=== PATIENT | male | born 1945 | race Hispanic/Latino ===

== ENCOUNTER 2017-11-13 00:19 | Inpatient (IN) | payer MEDICARE ==
[2017-11-13] MEDS ORDERED: Nitroglycerin 0.4 MG TAB (25 Tab Bottle) ONE (00:26)
[2017-11-13] MEDS ORDERED: Morphine 4 MG/ML VIAL ONE (00:50)
[2017-11-13 00:54] LABS: #Eosinphils 0.3 thou/uL (0.0-0.7); #Lymphocytes 3.4 thou/uL (1.20-3.40); #Monocytes 0.8 thou/uL (0.11-0.59); #Neutrophils 7.9 thou/uL (1.40-6.50); %Basophils 0.2 % (0.0-1.0); %Eosinophils 2.1 % (0.0-10.0); %Lymphocytes 27.3 % (21.0-51.0); %Monocytes 6.3 % (0.0-10.0); %Neutrophils 64.1 % (42.0-75.0); Hemoglobin 11.6 g/dL (14.0-18.0); Mean Corpuscular HGB CONC 35.2 g/dL (32.0-36.0); Mean Corpuscular Hemoglobin 31.5 pg (27.0-31.0); Mean Corpuscular Volume 89.7 fL (78.0-98.0); Platelet Count 230 thou/uL (130-400); RBC Distribution Width 14.7 % (11.5-14.5); Red Blood Cell (RBC) Count 3.69 mill/uL (4.70-6.10); White Blood Cell (WBC) Count 12.3 thou/uL (4.8-10.8)
[2017-11-13 01:12] LABS: ALT (SGPT) 8 U/L (8-55); AST (SGOT) 14 U/L (5-34); Albumin 3.7 g/dL (3.4-4.8); Alkaline Phosphatase 102 U/L (40-150); Anion Gap 13 mmol/L (10-20); BUN (Urea Nitrogen) 41 mg/dL (8.4-25.7); Bilirubin, Total 0.3 mg/dL (0.2-1.2); Calc. Creatinine Clearance 0 mL/min (70-130); Calcium 9.2 mg/dL (7.8-10.44); Carbon Dioxide 27 mmol/L (23-31); Chloride 101 mmol/L (98-107); Estimated GFR-MDRD 25; Globulin 4.4 g/dL (2.4-3.5); Glucose 252 mg/dL (80-115); Potassium 3.2 mmol/L (3.5-5.1); Protein, Total 8.1 g/dL (5.8-8.1); Sodium 138 mmol/L (136-145)
[2017-11-13 01:16] LABS: Troponin I 0.042 ng/mL (< 0.028)
[2017-11-13 05:10] LABS: Troponin I 0.037 ng/mL (< 0.028)
[2017-11-13 08:06] LABS: Troponin I 0.147 ng/mL (< 0.028)
--- NOTE | 2017-11-13 09:15 | RAD ---
PORTABLE UPRIGHT FRONTAL CHEST: Date: 11/13/17 COMPARISON: 06/09/16. HISTORY: Chest pain and syncope. FINDINGS: No pneumothorax, pleural fluid, lobar consolidation, or alveolar edema. There is prominence of the ca rdiac silhouette. Dual lead transvenous pacing device in stable position. Stable pulmonary vascular c ongestion and pulmonary hyperinflation. No lobar consolidation or alveolar edema. There is a questionable area of pleural based nodularity within the right lung apex laterally, simila r when compared to the 06/09/16 examination, significance uncertain. IMPRESSION: Stable chronic findings as detailed above. This includes an area of possible pleural based nodularity in the right lung apex measuring in the 1.0-1.5 cm range. Recommend nonemergent chest CT for further assessment. CODE T. CODE LN. POS: BLAIR
== END 2017-11-13 08:45 | disposition short-term general hospital (02) | DRG 311 ==
LOC: ERS 00:19 → ERHOLD 04:00
PROVIDERS: ADMIT Family Medicine; ATTEND Family Medicine
DX: I20.0 Unstable angina (principal); R74.8 Abnormal levels of other serum enzymes; R06.02 Shortness of breath; I10 Essential (primary) hypertension; E11.9 Type 2 diabetes mellitus without complications; I48.91 Unspecified atrial fibrillation; E78.5 Hyperlipidemia, unspecified; K21.9 Gastro-esophageal reflux disease without esophagitis; Z95.0 Presence of cardiac pacemaker; Z79.01 Long term (current) use of anticoagulants; Z79.84 Long term (current) use of oral hypoglycemic drugs
CPT/HCPCS: 36415; 71045; 80053; 80162; 83880; 84484; 85025; 93005; 96374; 96376; J2270

== ENCOUNTER 2019-06-19 19:37 | Inpatient (IN) | payer MEDICARE ==
[2019-06-19] MEDS ORDERED: Nitroglycerin 0.4 MG TAB 1 EACH ONE (19:49)
[2019-06-19 19:55] LABS: #Eosinphils 0.4 thou/uL (0.0-0.7); #Lymphocytes 2.1 thou/uL (1.20-3.40); #Monocytes 0.6 thou/uL (0.11-0.59); #Neutrophils 5.8 thou/uL (1.40-6.50); %Basophils 0.4 % (0.0-1.0); %Eosinophils 4.8 % (0.0-10.0); %Lymphocytes 23.4 % (21.0-51.0); %Monocytes 6.7 % (0.0-10.0); %Neutrophils 64.7 % (42.0-75.0); Hemoglobin 10.8 g/dL (14.0-18.0); Mean Corpuscular HGB CONC 34.6 g/dL (32.0-36.0); Mean Corpuscular Hemoglobin 32.3 pg (27.0-31.0); Mean Corpuscular Volume 93.4 fL (78.0-98.0); Mean Platelet Volume 9.2 fL (7.4-10.4); Platelet Count 171 thou/uL (130-400); RBC Distribution Width 15.5 % (11.5-14.5); Red Blood Cell (RBC) Count 3.33 mill/uL (4.70-6.10)
[2019-06-19 20:06] LABS: INR-International Normal Ratio 0.9; PTT 28.6 SEC (22.9-36.1); Prothrombin Time 12.3 SEC (12.0-14.7)
--- NOTE | 2019-06-19 20:12 | RAD ---
EXAM: CHEST ONE VIEW HISTORY: Chest pain multiple seizures today. Left facial droop. COMPARISON: 11/13/2017 FINDINGS: Dual-lead left subclavian cardiac pacemaking device remains in place. 2 metallic densities again over lie the left aspect of the cardiac silhouette. Cardiac silhouette is magnified by projection but stable in size compared to prior exams. Again noted is nodular appearing biapical pleural thickening which is overall similar compared to prior studies dating back to a study on 06/09/2016. Mild chronic lung changes are identified. No new area of consolidation or pleural fluid is identified. No other interval change. IMPRESSION: Stable overall chronic lung changes including area of nodular pleural thickening at the right lung ap ex. While this is likely related to chronic area of pleural thickening given stability since 2017, confirmation with nonemergent CT scan thorax may be helpful.
[2019-06-19 20:41] LABS: CKMB 1.8 ng/mL (0-6.6)
[2019-06-19 21:31] LABS: Bilirubin, Total 0.5 mg/dL (0.2-1.2); Chloride 99 mmol/L (98-107); Sodium 139 mmol/L (136-145)
[2019-06-19 21:44] LABS: Globulin 3.8 g/dL (2.4-3.5); Glucose 176 mg/dL (83-110); Protein, Total 7.8 g/dL (5.8-8.1)
[2019-06-19 21:45] LABS: Anion Gap 18 mmol/L (10-20); Carbon Dioxide 26 mmol/L (23-31)
[2019-06-19 21:46] LABS: Alkaline Phosphatase 161 U/L (40-110)
[2019-06-19 21:47] LABS: Calc. Creatinine Clearance 0 mL/min (70-130); Estimated GFR-MDRD 21
[2019-06-19 21:48] LABS: BUN (Urea Nitrogen) 44 mg/dL (8.4-25.7)
[2019-06-19 21:49] LABS: ALT (SGPT) 11 U/L (8-55); AST (SGOT) 15 U/L (5-34); CK (CPK) 62 U/L (30-200)
[2019-06-19 21:58] LABS: Potassium 2.7 mmol/L (3.5-5.1)
[2019-06-19] MEDS ORDERED: Magnesium 2 GM/50 ML BAG (IN WATER) ONE (22:42)
[2019-06-19] MEDS ORDERED: Potassium Chloride 20 MEQ TAB ONE (22:42)
[2019-06-19] MEDS ORDERED: Potassium Chloride 40 MEQ in Sodium Chloride 0.9% 250 ML 250 ML IVPB SCH (23:00)
--- NOTE | 2019-06-19 23:01 | CT ---
CT HEAD WITHOUT IV CONTRAST COMPARISON: 11/23/2012 HISTORY: Multiple seizures today. Left-sided facial droop. TECHNIQUE: Axial CT imaging at 5 mm intervals from vertex through skull base without contrast FINDINGS: A punctate low-density focus is seen in the inferior aspect of each basal ganglia which also appeared to have been present on the prior study and likely related to tiny remote lacunar infarctions versus dilated perivascular spaces. Stable curvilinear low density area in the left thalamus is also again seen likely attributable to remote lacunar infarction. There is no evidence of an acute infarction, hemorrhage, mass effect, or midline shift. Mild cerebral volume loss is present. The vent ricular system is normal in size, shape, and position for the degree of sulcal atrophy and is overall similar to prior exam. Visualized paranasal sinuses are clear. Osseous structures appear intact.CT head is stable compared to prior exam. IMPRESSION: 1. Chronic changes without evidence of an acute intracranial abnormality demonstrated. If there is cl inical concern for a seizure focus, follow-up brain MRI is advised.
[2019-06-20] MEDS ORDERED: Senokot S 8.6-50 MG TAB PO PRN (03:10)
[2019-06-20] MEDS ORDERED: Ondansetron PF 4 MG/2 ML Vial IVP PRN (03:10)
--- NOTE | 2019-06-20 03:16 | PDOC.HHP ---
Hospitalist HPI - History of Present Illness Chest pain; Syncope History of Present Illness: 74 yo male with CAD, CHF, DM-2, HTN, CKD-3 presents to ER due to Chest pain and passing out. He states that he started experiencing 10/10 chest pain in the middle of the chest that is dull in nature on Sunday. Yesterday, he noticed radiation to the left hand. No aggravating or relieving factors. Chest pain is associated with cough and yellow sputum that started Sunday. He reports shortness of breath with minimal exertion, wheezing. He reports palpitations since Sunday. He reports lightheadedness. Yesterday, he experienced 7 episodes of syncope and collapse with each episode lasting about 15-30 sec without any bowel or bladder incontinence. No tongue bite. He was able to recognize people after return of consciousness. There was no confusion according to the at bedside who witnessed the episodes. No N/V/D/C. No abdominal pain. He reports 3 days of burning and pain with urination. He has chronic urinary urgency which he attributes to BPH. No swelling in his legs or rash or bruising. No back pain, weakness in arms or legs. No headache or vision changes. states that in May, 2019, they were informed that his pacemaker has only 2- 3 months of battery left and needs to be changed. However, he has not yet had the pacemaker changed. ED Course: Found to have hypokalemia and given supplementation. Given nebs. Hospitalist ROS - Review of Systems All other systems reviewed; all pertinent +/- noted in HPI/Subj Hospitalist History - Past Medical History Source: patient, family Cardiac: reports: AFIB, CAD, CHF, HTN, ND, Hyperlipidemia Gastrointestinal: reports: GERD Endocrine: reports: Diabetes - Past Surgical History Past Surgical History: reports: Cholecystectomy, Total Knee Replacement - Family History Family History: reports: no pertinent history (Reviewed), cardiac disorder ( mother with CAD; CHF) - Social History Smoking Status: Current every day smoker Tobacco Type: cigarettes Alcohol: reports: None Drugs: reports: none Living Situation: With Family Activity level: uses cane/walker Hospitalist Results - Labs Result Diagrams: 06/19/19 19:45 06/19/19 19:45 Lab results: WBC 9.0 thou/uL (4.8-10.8) 06/19/19 19:45 Hgb 10.8 g/dL (14.0-18.0) L 06/19/19 19:45 Hct 31.1 % (42.0-52.0) L 06/19/19 19:45 MCV 93.4 fL (78.0-98.0) 06/19/19 19:45 Plt Count 171 thou/uL (130-400) 06/19/19 19:45 Neutrophils % 64.7 % (42.0-75.0) 06/19/19 19:45 Sodium 139 mmol/L (136-145) 06/19/19 19:45 Potassium 2.7 mmol/L (3.5-5.1) L* 06/19/19 19:45 Chloride 99 mmol/L (98-107) 06/19/19 19:45 Carbon Dioxide 26 mmol/L (23-31) 06/19/19 19:45 BUN 44 mg/dL (8.4-25.7) H 06/19/19 19:45 Creatinine 2.98 mg/dL (0.7-1.3) H 06/19/19 19:45 Glucose 176 mg/dL (83-110) H 06/19/19 19:45 Calcium 9.0 mg/dL (7.8-10.44) 06/19/19 19:45 Total Bilirubin 0.5 mg/dL (0.2-1.2) 06/19/19 19:45 AST 15 U/L (5-34) 06/19/19 19:45 ALT 11 U/L (8-55) 06/19/19 19:45 Alkaline Phosphatase 161 U/L (40-110) H 06/19/19 19:45 Creatine Kinase 62 U/L (30-200) 06/19/19 19:45 CK-MB (CK-2) 1.8 ng/mL (0-6.6) 06/19/19 19:45 Troponin I 0.030 ng/mL (< 0.028) H 06/20/19 00:40 Serum Total Protein 7.8 g/dL (5.8-8.1) 06/19/19 19:45 Albumin 4.0 g/dL (3.4-4.8) 06/19/19 19:45 - EKG Interpretation EKG: Personally reviewed - Paced rhythm - Radiology Interpretation CT scan - head Status: image reviewed by me (No acute hemorrhage or mass effect) Hospitalist H&P A/P - Problem (1) UTI (urinary tract infection) Status: Acute Qualifiers: Urinary tract infection type: acute cystitis Hematuria presence: without hematuria Qualified Code(s): N30.00 - Acute cystitis without hematuria Assessment and Plan: Admit to inpatient status. Expected to stay at least 2 midnights. High risk due to risk of lethal arrhythmias and need for IV abx Rocephin IV Urine cultures (2) Syncopal episodes Code(s): R55 - SYNCOPE AND COLLAPSE Status: Acute Qualifiers: Syncope type: unspecified Qualified Code(s): R55 - Syncope and collapse Assessment and Plan: Patient had 7 episodes of syncope today He denies any palpitations or dizziness prior to syncopal episodes He has history of pacemaker with low battery and CAD with multiple stents Concern for possible seizures Will obtain EEG Neuro consult Cardio consult and pacemaker interrogation with [facility] (3) COPD (chronic obstructive pulmonary disease) Status: Chronic Qualifiers: COPD type: COPD with acute exacerbation Qualified Code(s): J44.1 - Chronic obstructive pulmonary disease with (acute) exacerbation Assessment and Plan: IV steroids and PO doxycycline Nebs (4) Hypokalemia Code(s): E87.6 - HYPOKALEMIA Status: Acute Assessment and Plan: Replaced in ER Repeat labs and replace as needed (5) Atrial fibrillation Code(s): I48.91 - UNSPECIFIED ATRIAL FIBRILLATION Status: Chronic Qualifiers: Atrial fibrillation type: paroxysmal Qualified Code(s): I48.0 - Paroxysmal atrial fibrillation Assessment and Plan: Currently, with a paced rhythm Cardio consult (6) CAD (coronary artery disease) Code(s): I25.10 - ATHSCL HEART DISEASE OF [place] CORONARY ARTERY W/O ANG PCTRS Status: Chronic Qualifiers: Coronary Disease-Associated Artery/Lesion type: [place] artery [place] vs. transplanted heart: [place] heart Associated angina: angina presence unspecified Qualified Code(s): I25.10 - Atherosclerotic heart disease of [place] coronary artery without angina pectoris Assessment and Plan: Patient with chest pain radiating to left arm Troponins are flat line Cardio consulted ECHO Cycle cardiac markers ASA, statin and BB therapy (7) CHF (congestive heart failure) Code(s): I50.9 - HEART FAILURE, UNSPECIFIED Status: Chronic Qualifiers: Heart failure type: systolic Heart failure chronicity: chronic Qualified Code(s): I50.22 - Chronic systolic (congestive) heart failure Assessment and Plan: Obtain ECHO Cardio consult Hold diuretics for now (8) Hypertension Code(s): I10 - ESSENTIAL (PRIMARY) HYPERTENSION Status: Chronic Qualifiers: Hypertension type: essential hypertension Qualified Code(s): I10 - Essential (primary) hypertension Assessment and Plan: Hold HTN meds due to his syncopal episodes Monitor BP and adjust meds accordingly (9) DM (diabetes mellitus) Code(s): E11.9 - TYPE 2 DIABETES MELLITUS WITHOUT COMPLICATIONS Status: Acute Qualifiers: Diabetes mellitus type: type 2 Diabetes mellitus complication status: with kidney complications Diabetes mellitus complication detail: with chronic kidney disease Chronic kidney disease stage: stage 3 (moderate) Assessment and Plan: Diabetic diet with SSI Monitor sugars and adjust regimen accordingly He has CKD-3 but does not follow with nephrology Will consult nephrology Urinalysis Suspect ALICIA on CKD-3 due to overdiuresis Avoid nephrotoxic meds and hypotension Monitor urine output and renal function closely - Plan Plan: CODE STATUS - FULL CODE is health care proxy
[2019-06-20] MEDS ORDERED: Bacteriostatic Water 30 ML VIAL FS PRN (03:20)
[2019-06-20 03:38] LABS: #Eosinphils 0.4 thou/uL (0.0-0.7); #Lymphocytes 1.6 thou/uL (1.20-3.40); #Monocytes 0.6 thou/uL (0.11-0.59); #Neutrophils 6.7 thou/uL (1.40-6.50); %Basophils 0.3 % (0.0-1.0); %Eosinophils 4.1 % (0.0-10.0); %Lymphocytes 17.1 % (21.0-51.0); %Neutrophils 72.4 % (42.0-75.0); Hemoglobin 9.9 g/dL (14.0-18.0); Mean Corpuscular HGB CONC 34.3 g/dL (32.0-36.0); Mean Corpuscular Hemoglobin 32.3 pg (27.0-31.0); Mean Corpuscular Volume 93.9 fL (78.0-98.0); Mean Platelet Volume 9.7 fL (7.4-10.4); Platelet Count 169 thou/uL (130-400); RBC Distribution Width 15.7 % (11.5-14.5); Red Blood Cell (RBC) Count 3.06 mill/uL (4.70-6.10); White Blood Cell (WBC) Count 9.2 thou/uL (4.8-10.8)
[2019-06-20 03:58] LABS: ALT (SGPT) 10 U/L (8-55); AST (SGOT) 14 U/L (5-34); Albumin 3.6 g/dL (3.4-4.8); Alkaline Phosphatase 145 U/L (40-110); Anion Gap 15 mmol/L (10-20); BUN (Urea Nitrogen) 45 mg/dL (8.4-25.7); Bilirubin, Total 0.4 mg/dL (0.2-1.2); Calc. Creatinine Clearance 30 mL/min (70-130); Calcium 8.8 mg/dL (7.8-10.44); Carbon Dioxide 25 mmol/L (23-31); Chloride 101 mmol/L (98-107); Estimated GFR-MDRD 21; Globulin 3.7 g/dL (2.4-3.5); Glucose 294 mg/dL (83-110); Potassium 3.5 mmol/L (3.5-5.1); Protein, Total 7.3 g/dL (5.8-8.1); Sodium 137 mmol/L (136-145)
[2019-06-20 04:04] LABS: Troponin I 0.036 ng/mL (< 0.028)
[2019-06-20] MEDS: cefTRIAXone\\ROCEPHIN 1 GM in Sodium Chloride 0.9% 100 ML IVPB SCH (04:25)
[2019-06-20 05:32] VITALS: BMI 33.3
[2019-06-20] MEDS: Acetaminophen 325 MG TAB PO PRN ×2 (06:10→15:06)
[2019-06-20] MEDS: Ipratropium Bromide 2.5 ml Neb NEB SCH ×5 (06:40→22:37)
[2019-06-20] MEDS: Heparin 5,000 UNITS/ML VIAL SC SCH ×3 (09:22→22:13)
[2019-06-20] MEDS: methylPREDNISolone Sod Succ 40 MG VIAL IVP SCH ×2 (09:22→21:55)
[2019-06-20] MEDS: Doxycycline 100 MG CAP PO SCH ×2 (10:23→22:13)
[2019-06-20 11:04] LABS: Bilirubin Negative (Negative); Blood, Urine Negative (Negative); Glucose, Urine (Dipstick) 100 mg/dL (Negative); Leukocyte Negative (Negative); Nitrite Negative (Negative); Protein, Urine (Dipstick) 100 mg/dL (Neg-Trace); Urobilinogen 0.2 mg/dL (Less than 2)
[2019-06-20 11:06] LABS: Clarity Clear (Clear)
[2019-06-20 11:11] LABS: Bacteria/HPF None Seen HPF (None Seen); RBC/HPF 0-3 HPF (0-3); Squamous Epithelial 0-3 HPF (0-3); WBC/HPF 0-3 HPF (0-3)
[2019-06-20 11:15] LABS: Urine Culture Reflex No No
[2019-06-20] MEDS ORDERED: Dextrose 5% in Water 1,000 ML IV PRN (12:55)
[2019-06-20] MEDS ORDERED: Dextrose 50% Abboject 50 ML SYRINGE SLOW IVP PRN (12:55)
[2019-06-20] MEDS ORDERED: Nicotine 14 MG PATCH TD SCH (13:00)
[2019-06-20] MEDS ORDERED: Insulin Regular 300 UNITS/3 ML VIAL SC SCH (13:15)
[2019-06-20] MEDS ORDERED: Non-Formulary Item 1 EACH (Bumetanide [Bumetanide] 2 MG) PO SCH (14:00)
--- NOTE | 2019-06-20 14:12 | CON ---
DATE OF CONSULTATION: 06/20/2019 CONSULTING PHYSICIAN: Hospitalist Service. IMPRESSION: Multiple syncopal episodes, which appear to be more cardiogenic in description than related to neurologic etiology. PLAN: 1. Pacemaker interrogation. 2. Continue ECG monitoring. 3. Orthostatic blood pressures. 4. EEG. HISTORY OF PRESENT ILLNESS: Mr. Lucas is a 74-year-old gentleman with a past history of CHF, coronary artery disease, atrial fibrillation, diabetes, hypertension with a pacemaker in place. Reportedly, the battery is failing. Over the last few days, he has had multiple syncopal events. Most of the events occurred when he had stood up and tried to walk. He suddenly loses consciousness and collapses. He was only out for 2 or 3 seconds by his description. One event occurred when he was sitting in his recliner. There has been some questionable seizure-like activity associated with one of the events. He reports past history of a minor stroke without any residual effect. He was told his pacemaker battery was failing. PAST MEDICAL HISTORY: As listed above. ALLERGIES: NONE. SOCIAL HISTORY: No tobacco or alcohol. FAMILY HISTORY: Noncontributory. REVIEW OF SYSTEMS: Ten-system review of systems is otherwise negative. PHYSICAL EXAMINATION: VITAL SIGNS: Blood pressure 142/79, pulse 70 and a sinus rhythm, respirations 18, and temperature 98.3. HEENT: Pupils are equal and reactive. Conjunctivae are clear. Oropharynx clear. NECK: Supple. EXTREMITIES: No cyanosis or edema. NEUROLOGIC: He is alert and cooperative. Speech is fluent and clear. There is no facial asymmetry and no fix or drift. There is no tremor or dysmetria. Sensations intact to touch. Plantar responses were downgoing. Gait was not tested. SUMMARY: The overall clinical picture appears more consistent with syncope. His workup is underway. Job ID: [id number]
[2019-06-20] MEDS: Gabapentin 300 MG CAP PO SCH ×2 (15:05→22:13)
[2019-06-20] MEDS: hydrALAZINE 25 MG TAB PO SCH ×2 (15:06→22:14)
[2019-06-20] MEDS: Pyridostigmine Bromide IR 60 MG TAB PO SCH ×2 (15:07→22:14)
--- NOTE | 2019-06-20 20:12 | CON ---
DATE OF CONSULTATION: 06/20/2019 PRIMARY FAMILY INTERVENTION SPECIALIST: Dr. Los Ruby. REASON FOR CONSULTATION: Syncope. HISTORY OF PRESENT ILLNESS: Mr. Lucas is a 74-year-old gentleman who comes to the hospital for syncopal spells. He was at home and has been passing out recently every time he stands up. He gets 2 or 3 steps and he passes out. The first time he stood up from his bedroom and was walking over to the kitchen and he passed out in the kitchen. The second time he did the exact same thing. He stood up from being lying down on the bed, walked to the kitchen and passed out. Third time, he was walking to the bathroom and passed out. Last time, yesterday, his tells me that he had the same situation when he stood up, walked over and passed out and every time she would sit him up, he would lose consciousness and went down. She would sit him back up, he would lose consciousness again and when he would lie flat he would regain consciousness. She would sit him back up. She did this 7 times. Questionable episodes of seizure-like activity with 1 of the events, but most of the events were just syncopal spells, where these lasted for a few seconds at a time. He regained consciousness when he was lying flat. He denies any chest pain, tightness, or pressure. He tells me he is not having any other issues. He does have a little cough and he has little chest pain when he coughs. His biventricular pacemaker is actually at the end of replacement intervals since early May and is scheduled to see Dr. Coppola from [facility] in the next few weeks to have this pacemaker replaced. He denies fevers or chills. PAST MEDICAL HISTORY: 1. History of chronic atrial fibrillation. 2. Coronary artery disease. 3. Heart failure in the past. 4. Hypertension. 5. Hyperlipidemia. 6. History of an MT in the past. 7. History of multiple syncopal spells in the past. 8. Biventricular AICD in place. REVIEW OF SYSTEMS: A 12-point review of systems was done and was all negative unless stated in the history of present illness. PAST SURGICAL HISTORY: 1. Cholecystectomy. 2. Total knee replacement. 3. Biventricular pacemaker placed. FAMILY HISTORY: Noncontributory. SOCIAL HISTORY: Smokes, continues to smoke. No alcohol or drugs. OUTPATIENT MEDICATIONS: 1. Metolazone 2.5 mg every third day. 2. Metoprolol succinate 100 mg at bedtime. 3. Hydralazine 25 mg t.i.d. 4. Allopurinol 200 mg daily. 5. Potassium chloride 10 mEq b.i.d. 6. Cardura 4 mg at bedtime. 7. Pantoprazole 40 mg a day. 8. Zetia 10 mg a day. 9. Atorvastatin 40 mg a day. 10. Pyridostigmine 60 mg t.i.d. 11. Clopidogrel 75 mg a day. 12. Bumex 2 mg twice a day. 13. Gabapentin 300 mg t.i.d. 14. Losartan 25 mg a day. 15. Isosorbide mononitrate 60 mg a day. ALLERGIES: NO KNOWN DRUG ALLERGIES. PHYSICAL EXAMINATION: VITAL SIGNS: Temperature 97.6, pulse 71, respiratory rate 16, sat 95% on room air, and blood pressure 155/74. GENERAL: Awake, alert, and oriented x3. No distress. HEENT: Normocephalic and atraumatic. NECK: Supple. LUNGS: Clear. CARDIOVASCULAR: S1 and S2. No S3 or S4. ABDOMEN: Soft. EXTREMITIES: Trace edema. SKIN: Warm and dry. LABORATORY WORK: Reviewed. White count of 9, hemoglobin 10, hematocrit 31, and platelet count of 171. Coags and chemistries were reviewed. Creatinine of 2.91, down from 2.98. His baseline has been between 1.6 to 2. However, he has been here for at least 3 years. Troponin is in indeterminate range of 0.03, 0.03, and then 0.03. Prolactin was 25. UA was unremarkable. Pacemaker interrogation showed a chronic atrial fibrillation. No other tachyarrhythmias to explain syncopal spells. ASSESSMENT: 1. Syncope. 2. Coronary artery disease. 3. Ischemic cardiomyopathy. 4. Presence of a biventricular pacemaker. PLAN: 1. It sounds like he is having what appears to be orthostatic syncopal episodes. It happens every time, he stands up and when he had 7 in row, he would wake up and he would lie down on his back and every time they would sit him back up, he would pass out again. Most likely volume depleted. It is very difficult to keep him volume dry with the amount of diuresis that he is on top of having a weak heart. At this point, we will plan on getting an echocardiogram to assess LV function. 2. We will try to adjust some of his blood pressure medications. This may be part of the problem. 3. Prohibitive to do a heart catheterization given his elevated creatinine. I do not think he is having an acute coronary syndrome. 4. His pacemaker defibrillator is at end of replacement interval. He has at least 2 more months of battery left. This will be addressed more than likely as an outpatient. Thank you for letting us participate in the care of your patient. We will follow. 45 minutes of critical care time. Job ID: [id number]
--- NOTE | 2019-06-20 20:32 | CON ---
DATE OF CONSULTATION: 06/20/2019 CONSULTING PHYSICIAN: Dr. Kamara. REASON FOR CONSULTATION: Acute kidney injury. REASON FOR ADMISSION: Chest pain, syncope. HISTORY OF PRESENT ILLNESS: A 74-year-old male with history of coronary artery disease, CHF, type 2 diabetes, hypertension, CKD, came to hospital with chest pain and syncope, was found to have acute kidney injury. His creatinine was 2.9. His baseline is 1.9 and 1.8. Nephrology was consulted. 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 No fever or chills. No abdominal pain. PAST MEDICAL HISTORY: Positive for atrial fibrillation, coronary artery disease , CHF, hypertension, hyperlipidemia, and GERD. PAST SURGICAL HISTORY: Cholecystectomy and total knee replacement. HOME MEDICATIONS: Metolazone, metoprolol, hydralazine, allopurinol, potassium, Cardura, Protonix, Zetia, Lipitor, Mestinon, Plavix, Bumex, gabapentin, losartan , isosorbide. ALLERGIES: NO KNOWN DRUG ALLERGIES. SOCIAL HISTORY: No smoking, alcohol, or drugs. FAMILY HISTORY: No history of kidney disease. REVIEW OF SYSTEMS: CONSTITUTIONAL: Negative for weight loss or gain, ability to conduct usual activities. SKIN: Negative for rash, itching. EYES: Negative for double vision, pain. ENT/MOUTH: Negative for nose bleeding, neck stiffness, pain, tenderness. CARDIOVASCULAR: Negative for palpitations, dyspnea on exertion, orthopnea. RESPIRATORY: Negative for shortness of breath, wheezing, cough, hemoptysis, fever or night sweats. GASTROINTESTINAL: Negative for poor appetite, abdominal pain, heartburn, nausea , vomiting, constipation, or diarrhea. GENITOURINARY: Negative for urgency, frequency, dysuria, nocturia. MUSCULOSKELETAL: Negative for pain, swelling. NEUROLOGIC/PSYCHIATRIC: Negative for anxiety, depression. ALLERGY/IMMUNOLOGIC: Negative for skin rash, bleeding tendency. PHYSICAL EXAMINATION: GENERAL: This is a well-built male, in no apparent distress. VITAL SIGNS: Temperature pulse 80, respiration blood pressure 155/74. Musculoskeletal : No tenderness, 1+ edema HEENT: Atraumatic normocephalic Neck: Supple Cardiovascular: S1S2 heard, Rate and rhythm regular Respiratory: Clear to auscultation Gastrointestinal: Abdomen is soft Dermatologic : No skin rash Neurologic: Alert and awake and oriented X3 No focal neurologic deficits. Moving all the extremities. Psychiatric: Mood and affect normal LABORATORY DATA: Potassium 3.5, BUN is 45, creatinine is 2.9. ASSESSMENT/PLAN: 1. Acute kidney injury on chronic kidney disease. We will monitor renal function. 2. Urinary tract infection. Continue antibiotics. 3. Anemia of chronic disease. 4. Edema. 5. We will check for proteinuria. 6. Mild hypoalbuminemia. 7. Continue current management. Avoid nephrotoxins. We will monitor renal function. Job ID: [id number] [facility]
[2019-06-20] MEDS ORDERED: Insulin Glargine 25 UNITS in Pre-Filled Syringe SC SCH (21:00)
[2019-06-20] MEDS ORDERED: Doxazosin Mesylate 4 MG TAB PO SCH (21:00)
[2019-06-20] MEDS ORDERED: POTASSIUM CHLORIDE 10 MEQ PO SCH (21:00)
[2019-06-20] MEDS: HumaLOG 300 UNITS/3 ML VIAL SC PRN (21:43)
[2019-06-20] MEDS: Potassium Chloride 10 MEQ TAB PO SCH (22:14)
[2019-06-21] MEDS: Ipratropium Bromide 2.5 ml Neb NEB SCH ×4 (02:23→14:48)
[2019-06-21] MEDS: cefTRIAXone\\ROCEPHIN 1 GM in Sodium Chloride 0.9% 100 ML IVPB SCH (04:48)
[2019-06-21] MEDS: HumaLOG 300 UNITS/3 ML VIAL SC PRN ×2 (05:36→13:11)
[2019-06-21 06:10] LABS: Creatinine, Urine 46.31 mg/dL (63-166)
[2019-06-21] MEDS ORDERED: Clopidogrel Bisulfate 75 MG TAB PO SCH (09:00)
[2019-06-21] MEDS ORDERED: Bumetanide 1 MG TAB PO SCH (09:00)
[2019-06-21] MEDS ORDERED: Atorvastatin Calcium 40 MG TAB PO SCH (09:00)
[2019-06-21] MEDS ORDERED: Ezetimibe 10 MG TAB PO SCH (09:00)
[2019-06-21] MEDS ORDERED: Allopurinol 300 MG TAB PO SCH (09:00)
[2019-06-21] MEDS ORDERED: Losartan 25 MG TAB PO SCH (09:00)
[2019-06-21] MEDS: Heparin 5,000 UNITS/ML VIAL SC SCH (09:52)
[2019-06-21] MEDS: methylPREDNISolone Sod Succ 40 MG VIAL IVP SCH (09:52)
[2019-06-21] MEDS: Doxycycline 100 MG CAP PO SCH (09:53)
[2019-06-21] MEDS: Potassium Chloride 10 MEQ TAB PO SCH (09:53)
[2019-06-21] MEDS: Pyridostigmine Bromide IR 60 MG TAB PO SCH (09:54)
[2019-06-21] MEDS: hydrALAZINE 25 MG TAB PO SCH (09:54)
[2019-06-21] MEDS: Gabapentin 300 MG CAP PO SCH (09:54)
[2019-06-21] MEDS ORDERED: Insulin Regular 300 UNITS/3 ML VIAL SC SCH (10:15)
[2019-06-21 11:05] LABS: #Lymphocytes 1.4 thou/uL (1.20-3.40); #Monocytes 0.4 thou/uL (0.11-0.59); #Neutrophils 15.7 thou/uL (1.40-6.50); %Eosinophils 0.1 % (0.0-10.0); %Lymphocytes 8.1 % (21.0-51.0); %Monocytes 2.4 % (0.0-10.0); %Neutrophils 89.4 % (42.0-75.0); Hemoglobin 9.6 g/dL (14.0-18.0); Mean Corpuscular HGB CONC 33.6 g/dL (32.0-36.0); Mean Corpuscular Hemoglobin 31.8 pg (27.0-31.0); Mean Corpuscular Volume 94.6 fL (78.0-98.0); Mean Platelet Volume 9.9 fL (7.4-10.4); Platelet Count 168 thou/uL (130-400); RBC Distribution Width 15.8 % (11.5-14.5); Red Blood Cell (RBC) Count 3.03 mill/uL (4.70-6.10); White Blood Cell (WBC) Count 17.6 thou/uL (4.8-10.8)
[2019-06-21 11:15] VITALS: TEMP 98.2
[2019-06-21 11:18] LABS: Anion Gap 16 mmol/L (10-20); BUN (Urea Nitrogen) 51 mg/dL (8.4-25.7); Calc. Creatinine Clearance 31 mL/min (70-130); Calcium 9.2 mg/dL (7.8-10.44); Carbon Dioxide 22 mmol/L (23-31); Chloride 95 mmol/L (98-107); Estimated GFR-MDRD 22; Glucose 488 mg/dL (83-110); Potassium 4.1 mmol/L (3.5-5.1); Sodium 129 mmol/L (136-145)
--- NOTE | 2019-06-21 11:30 | PRG ---
DATE OF SERVICE: 06/21/2019 SUBJECTIVE: The patient is seen and examined at the bedside. He is feeling fine. He does not have much complaints to offer. He is somewhat upset and he would like to go back to his [facility] and his doctors at [facility]. OBJECTIVE: VITAL SIGNS: He refused to wear blood pressure cuff according to the nurses. Pulse is 71, respiratory rate is 17, O2 saturation is 96% on room air. HEENT: His head is atraumatic and normocephalic. Eyes are PERRLA. Sclerae are nonicteric. Oral mucosa is moist. NECK: Supple. LUNGS: Few rales at both bases, mild. HEART: S1 and S2, normal. No S3. No S4. ABDOMEN: Soft and nontender. EXTREMITIES: No clubbing, cyanosis, or edema. NEUROLOGIC: He is alert and oriented x4. There are no any motor or sensory deficits. LABORATORY DATA: Showed glycemia is ranging from 433 to 542. Urine protein random 78. Urine creatinine IMPRESSION: 1. Syncopal episodes, multiple. No more episodes during this hospitalization. 2. Chronic obstructive pulmonary disease, acute on chronic with mild exacerbation. 3. Hypokalemia. 4. Atrial fibrillation, chronic. 5. Pacemaker. 6. Coronary artery disease, chronic, stable. 7. History of congestive heart failure, chronic, stable. 8. Hypertension. 9. Diabetes mellitus, uncontrolled secondary to IV Solu-Medrol use. PLAN: To discontinue Solu-Medrol. Start prednisone 20 mg tomorrow morning. Continue DuoNebs. Echocardiogram is done, results are pending. He is going to have 20 units of Humalog subcutaneously x1, then Accu-Cheks every 2 hours and moderate sliding scale to cover. The patient was seen by wash house worker and his pacer was interrogated, which showed approximately 2 months of additional time to be used, but the battery needs to be replaced. The patient's hypokalemia is corrected. We will stop IV Rocephin since urinalysis did not show any infection and he will continue DVT prophylaxis with heparin. Job ID: [id number]
--- NOTE | 2019-06-21 15:46 | PDOC.CPN ---
- Subjective Date: 06/21/19 Time: 15:44 Interval history: No more syncope. - Review of Systems General: denies: fever/chills, weight/appetite/sleep changes, night sweats, fatigue Respiratory: denies: cough, congestion, shortness of breath, exercise intolerance Cardiovascular: denies: chest pain, palpitation, edema, paroxysmal nocturnal dyspnea, orthopnea Gastrointestinal: denies: nausea, vomiting, diarrhea, constipation, abd pain, GI bleeding Musculoskeletal: denies: pain, tenderness, stiffness, swelling, arthritis/ arthralgias Neurological: denies: numbness, syncope, seizure, weakness - Objective Allergies/Adverse Reactions: Allergies Allergy/AdvReac Type Severity Reaction Status Date / Time No Known Allergies Allergy Verified 06/05/15 16:06 Visit Medications: Current Medications Acetaminophen (Tylenol) 650 mg PO Q4H PRN PRN Reason: Headache/Fever/Mild Pain (1-3) Last Admin: 06/20/19 15:06 Dose: 650 mg Albuterol/Ipratropium (Duoneb) 3 ml NEB [id number] PRN PRN Reason: SOB &/or Wheezing Allopurinol (Zyloprim) 300 mg PO DAILY [facility] Last Admin: 06/21/19 09:54 Dose: 300 mg Atorvastatin Calcium (Lipitor) 40 mg PO DAILY [facility] Last Admin: 06/21/19 09:53 Dose: 40 mg Bumetanide (Bumex) 2 mg PO 0900,1400 [facility] Last Admin: 06/21/19 09:53 Dose: 2 mg Clopidogrel Bisulfate (Plavix) 75 mg PO DAILY [facility] Last Admin: 06/21/19 09:54 Dose: 75 mg Dextrose/Water (Dextrose 50%) 25 gm SLOW IVP PRN PRN PRN Reason: Hypoglycemia Doxazosin Mesylate (Cardura) 4 mg PO HS [facility] Last Admin: 06/20/19 22:13 Dose: 4 mg Doxycycline Hyclate (Vibramycin) 100 mg PO BID [facility] Last Admin: 06/21/19 09:53 Dose: 100 mg Ezetimibe (Zetia) 10 mg PO DAILY [facility] Last Admin: 06/21/19 09:53 Dose: 10 mg Gabapentin (Neurontin) 300 mg PO TID [facility] Last Admin: 06/21/19 09:54 Dose: 300 mg Glucagon (Glucagon) 1 mg IM PRN PRN PRN Reason: Hypoglycemia Heparin Sodium (Porcine) (Heparin) 5,000 units SC TID [facility] Last Admin: 06/21/19 09:52 Dose: 5,000 units Hydralazine HCl (Apresoline) 25 mg PO BID [facility] Dextrose/Water (D5w) 1,000 mls @ 0 mls/hr IV .Q0M PRN PRN Reason: Hypoglycemia Insulin Glargine 25 units/ (Miscellaneous Medication) 0.25 mls @ 0 mls/hr SC [facility] Last Admin: 06/20/19 21:42 Dose: 0.25 mls Insulin Human Lispro (Humalog) 0 units SC .MODERATE SLIDING SC PRN PRN Reason: Moderate Correctional Scale Last Admin: 06/21/19 13:11 Dose: 10 unit Ipratropium [place] (Atrovent) 2.5 ml NEB [id number] [facility] Last Admin: 06/21/19 14:48 Dose: 2.5 ml Isosorbide Mononitrate (Imdur) 60 mg PO DAILY [facility] Last Admin: 06/21/19 09:54 Dose: 60 mg Metolazone (Zaroxolyn) 2.5 mg PO Q3DAYS [facility] Metoprolol Succinate (Toprol Xl) 100 mg PO [facility] Last Admin: 06/20/19 22:14 Dose: 100 mg Nicotine (Nicoderm Patch) 14 mg TD Q24HR [facility] Last Admin: 06/20/19 15:04 Dose: 14 mg Ondansetron HCl (Zofran) 4 mg IVP Q6H PRN PRN Reason: Nausea/Vomiting Pantoprazole Sodium (Protonix) 40 mg PO DAILY [facility] Last Admin: 06/21/19 09:54 Dose: 40 mg Potassium Chloride (Klor-Con 10) 10 meq PO BID [facility] Last Admin: 06/21/19 09:53 Dose: 10 meq Prednisone (Prednisone) 20 mg PO QAM-WM [facility] Pyridostigmine [place] (Mestinon) 60 mg PO TID [facility] Last Admin: 06/21/19 09:54 Dose: 60 mg Senna/Docusate Sodium (Senokot S) 2 tab PO BID PRN PRN Reason: Constipation Sodium Chloride (Flush - Normal Saline) 10 ml IVF Q12HR [facility] Last Admin: 06/21/19 09:54 Dose: 10 ml Sodium Chloride (Flush - Normal Saline) 10 ml IVF PRN PRN PRN Reason: Saline Flush Sterile Water (Bacteriostatic Water) 1 ml FS PRN PRN PRN Reason: RECONSTITUTION Vital Signs & Weight: Vital Signs Temp Pulse Resp Pulse Ox 06/21/19 14:48 74 19 97 06/21/19 11:15 98.2 F 06/21/19 10:09 71 17 96 06/21/19 09:54 71 06/21/19 08:00 96 06/21/19 07:27 98.3 F 06/21/19 06:37 71 19 95 06/21/19 04:36 97.8 F Weight 205 lb 4.8 oz - Physical Exam General: alert & oriented x3 HEENT: mucus membranes moist Neck: supple neck Cardiac: regular rate and rhythm Lungs: clear to auscultation Neuro: grossly intact Abdomen: active bowel sounds Extremities: no edema Skin: clear Musculoskeletal: no pain - Labs Result Diagrams: 06/21/19 10:49 06/21/19 10:49 Troponin/CKMB CK-MB (CK-2) 1.8 ng/mL (0-6.6) 06/19/19 19:45 Troponin I 0.036 ng/mL (< 0.028) H 06/20/19 03:18 - Telemetry Sinus rhythms and dysrhythmias: sinus rhythm - Assessment/Plan Assessment/Plan: 1. Syncope. 2. Orthostatic hypotension 3. CAD, stable 4. BiV AICD in place no therapies or tachy arrhythmias 5. Normal EF on echo today. 6. Right sided pressures were elavetd. PLAN: - Will stop losartan as creatinine is high and he is likely orthostatic - Will cut back on hydralazine to 25 mg BID from TID - Continue other meds. - He may be discharged from cardiac perspective. - Check BP's standing only at home and he will follow up with his primary [employer].
[2019-06-21] MEDS ORDERED: hydrALAZINE 25 MG TAB PO SCH (21:00)
[2019-06-22] MEDS ORDERED: predniSONE 20 MG TAB PO SCH (08:00)
--- NOTE | 2019-06-23 07:21 | PRG ---
DATE OF SERVICE: 06/21/2019 SUBJECTIVE: Patient was seen and examined at bedside and overnight events noted. Patient denies any shortness of breath or chest pain or palpitation. No history of nausea or vomiting or diarrhea or fever or chills or cramps. OBJECTIVE: GENERAL: This is a well-built male, in no apparent distress. VITAL SIGNS: Temperature 98.2. Heart rate 71. Respiratory rate . Blood pressure 156/70. HEENT: Atraumatic, normocephalic. Oral mucosa is moist NECK: Supple. CARDIOVASCULAR: S1, S2 heard. Rate and rhythm regular. RESPIRATORY: Clear to auscultation. GASTROINTESTINAL: Abdomen is soft. MUSCULOSKELETAL: No tenderness. No edema. DERMATOLOGIC: No skin rash. NEUROLOGIC: Alert and awake and oriented X3. No focal neurologic deficits. Moving all the extremities. PSYCHIATRIC: Mood and affect normal. LABORATORY DATA: Potassium 4.1, BUN is 51, creatinine is 2.83, sodium is 129. ASSESSMENT AND PLAN: 1. Acute kidney injury on chronic kidney disease stage 4, stable. 2. Edema, controlled. 3. h/o Hypertension 4. Anemia of chronic disease. 5. Urinary tract infection. We will monitor renal function closely. Avoid nephrotoxins. Job ID: [id number] [facility]
[2019-06-23] MEDS ORDERED: Metolazone 2.5 MG TAB PO SCH (09:00)
--- NOTE | 2019-06-23 14:59 | DIS ---
DATE OF ADMISSION: 06/20/2019 DATE OF DISCHARGE: 06/21/2019 DIAGNOSES AT THE TIME OF DISCHARGE: 1. Recurrent syncopal episodes. 2. Chronic obstructive pulmonary disease, acute on chronic mild exacerbation. 3. Hypokalemia. 4. Atrial fibrillation, chronic. 5. Pacemaker. 6. Coronary artery disease, chronic, stable. 7. History of congestive heart failure, chronic, stable. 8. Hypertension. 9. Diabetes mellitus uncontrolled secondary to IV steroid use for his chronic obstructive pulmonary disease. HARDSCAPE FOREMAN: Cardiology Service, Fernando Zarco MD. IMAGIN. Chest x-ray, chronic lung changes including area of the nodular pleural thickening at the right lung base. 2. Brain CT. a. Chronic changes without evidence of an acute intracranial abnormality. 3. Echocardiogram showed LVEF estimated at 50% to 55%, grade 1/3 diastolic dysfunction, mild concentric left ventricular hypertrophy, lead wire visualized in the right ventricle, dilated RV with mildly reduced RV systolic function. Severely dilated left atrium, markedly enlarged right atrium. Mitral annular calcification, mild to moderate mitral regurgitation. MitraClip in place. Aortic valve sclerosis, mild aortic regurgitation, moderate tricuspid regurgitation, and elevated right ventricular systolic pressure estimated at 55 mmHg. HOSPITAL COURSE: The patient is a 74-year-old male with history of CAD, CHF, diabetes mellitus type 2, hypertension, CKD stage 3, who presented to the emergency room due to chest pain and passing out. Apparently, he was experiencing chest pain rated at 10 on a scale from 1 to 10 in the middle of the chest, which was dull in nature. He noticed that this pain was radiating into the left hand. It was associated with cough and yellow sputum, which started recently along with some shortness of breath with exertion. Also, he had some palpitations and lightheadedness. Apparently, he had several episodes of syncope and collapse, which each episode lasting approximately 15 to 30 seconds without any bowel or bladder incontinence or tongue bite. Loss of consciousness lasted very short period of time and there was no confusion post episodes according to the witnesses. There was no nausea, vomiting, diarrhea, constipation, or abdominal pain. In May, he was informed that his pacemaker has only 2 to 3 months of battery life left and needs to be changed. In the emergency room, he was found to have hypokalemia and was given supplementation along with DuoNeb. The patient had chest x-ray done, which did not show any acute abnormalities. Also, his CT of the brain did not show any abnormalities. Electrocardiogram showed paced rhythm, 100% capture. He got admitted to the hospital Solu-Medrol, which affected his glycemia significantly to the point that he required big doses of short-acting insulin. In the meantime, he was seen by Dr. Mcqueen who felt that his episodes of consciousness were caused by multiple syncopal episodes, so his pacer was interrogated and director trading saw the patient. Based on Cardiology's evaluation and echocardiogram findings, the patient's medications were supposed to be modified and special effort was made to get his glycemia under control. His Solu-Medrol was stopped and he was placed on prednisone to be started the next day, but the patient decided to leave against medical advice and he said that he will follow up with [facility] and hence [facility]. Job ID: [id number]
--- NOTE | 2019-06-24 15:52 | EEG ---
Referring Physician: Valerie BIGGS EEG # [id number] TEST TYPE: ROUTINE PORTABLE INPATIENT REPORT: AN EEG USING THE [employer]NATIONAL TEN-TWENTY SYSTEM OF ELECTRODE PLACEMENT WAS PERFORMED. The waking background is an 8 hertz alpha frequency. The patient remained awake throughout the study Photic stimulation was unremarkable. No epileptiform features were seen. IMPRESSION: THIS IS A NORMAL AWAKE EEG. Reducing System Operator: HUEY Mental Health Director: [email or web address].[email or web address] FOSTER
== END 2019-06-21 15:25 | disposition left against medical advice (07) | DRG 312 ==
LOC: ERS 19:37 → ERHOLD 06-20 00:10 → IMCU/EMU 06-20 01:28
PROVIDERS: ADMIT Internal Medicine Sleep Medicine; ATTEND Internal Medicine
PROC: 4B02XTZ Measurement of Cardiac Defibrillator, External Approach (ICD-10-PCS; principal; 2019-06-20)
DX: I95.1 Orthostatic hypotension (principal); J44.1 Chronic obstructive pulmonary disease with (acute) exacerbation; N30.00 Acute cystitis without hematuria; I48.20 Chronic atrial fibrillation, unspecified; I13.0 Hypertensive heart and chronic kidney disease with heart failure and stage 1 through stage 4 chronic kidney disease, or unspecified chronic kidney disease; I50.22 Chronic systolic (congestive) heart failure; N17.9 Acute kidney failure, unspecified; N18.4 Chronic kidney disease, stage 4 (severe); E87.6 Hypokalemia; I25.10 Atherosclerotic heart disease of native coronary artery without angina pectoris; E11.22 Type 2 diabetes mellitus with diabetic chronic kidney disease; N40.1 Benign prostatic hyperplasia with lower urinary tract symptoms; R33.8 Other retention of urine; K21.9 Gastro-esophageal reflux disease without esophagitis; F17.210 Nicotine dependence, cigarettes, uncomplicated; I25.5 Ischemic cardiomyopathy; E11.65 Type 2 diabetes mellitus with hyperglycemia; T38.0X5A Adverse effect of glucocorticoids and synthetic analogues, initial encounter; D63.1 Anemia in chronic kidney disease; Z90.49 Acquired absence of other specified parts of digestive tract; Z95.5 Presence of coronary angioplasty implant and graft; Z86.73 Personal history of transient ischemic attack (TIA), and cerebral infarction without residual deficits; I25.2 Old myocardial infarction; Z95.810 Presence of automatic (implantable) cardiac defibrillator; Z79.899 Other long term (current) drug therapy
CPT/HCPCS: 36415; 36416; 70450; 71045; 80048; 80053; 81001; 82550; 82553; 82570; 83735; 84146; 84156; 84484; 85025; 85610; 85730; 93005; 93306; 94640; 95816; 95819; 96365; 96366; 96367; J0696; J1644; J1815; J2920; J3475; J3480; J3490; J7050; J7620

== ENCOUNTER 2021-05-30 09:07 | Inpatient (IN) | payer MEDICARE ==
[2021-05-30] MEDS ORDERED: methylPREDNISolone Sod Succ/PF 125 MG/2 ML VIAL ONE (09:16)
[2021-05-30] MEDS ORDERED: Morphine 4 MG/ML VIAL ONE ×2 (09:16→11:02)
[2021-05-30] MEDS ORDERED: Magnesium 2 GM/50 ML BAG (IN WATER) ONE (09:17)
[2021-05-30] MEDS ORDERED: Iopamidol 370 76% 100 ML VIAL ONE (09:33)
[2021-05-30 10:22] LABS: ALT (SGPT) 15 U/L (8-55); AST (SGOT) 14 U/L (5-34); Albumin 3.4 g/dL (3.4-4.8); Alkaline Phosphatase 162 U/L (40-110); Anion Gap 18 mmol/L (10-20); BUN (Urea Nitrogen) 28 mg/dL (8.4-25.7); Bilirubin, Total 0.7 mg/dL (0.2-1.2); Calc. Creatinine Clearance 0 mL/min (70-130); Calcium 8.7 mg/dL (7.8-10.44); Chloride 108 mmol/L (98-107); Glucose 148 mg/dL (83-110); Magnesium 1.8 mg/dL (1.6-2.6); Potassium 4.2 mmol/L (3.5-5.1); Protein, Total 7.4 g/dL (5.8-8.1); Sodium 137 mmol/L (136-145)
[2021-05-30 10:27] LABS: SARS-CoV-2 NAA Rapid Test Not Detected (NotDetected)
[2021-05-30] MEDS ORDERED: Furosemide 40 MG/4 ML VIAL ONE (13:08)
[2021-05-30 13:21] LABS: Carbon Dioxide 17 mmol/L (23-31)
[2021-05-30 13:23] LABS: Bacteria/HPF Rare-Few HPF (None Seen); Bilirubin Negative (Negative); Blood, Urine Negative (Negative); Clarity Clear (Clear); Glucose, Urine (Dipstick) 30 mg/dL (Negative); Ketone, Urine Negative (Negative); Leukocyte Negative Leu/uL (Negative); Nitrite Negative (Negative); Protein, Urine (Dipstick) 200 mg/dL (Neg-Trace); RBC/HPF 0-3 HPF (0-3); Specific Gravity, Urine 1.019 (1.002-1.036); Squamous Epithelial 0-3 HPF (0-3); Urobilinogen Normal mg/dL (Less than 2)
[2021-05-30] MEDS ORDERED: Dextrose 5% in Water 1,000 ML IV PRN (14:55)
[2021-05-30] MEDS ORDERED: Ondansetron PF 4 MG/2 ML Vial IVP PRN (14:55)
[2021-05-30] MEDS ORDERED: Dextrose 50% Abboject 50 ML SYRINGE SLOW IVP PRN (14:55)
[2021-05-30] MEDS ORDERED: Albuterol Sulfate 2.5 mg/3 ml Neb NEB PRN (15:04)
[2021-05-30 16:04] LABS: Troponin I 0.018 ng/mL (< 0.028)
[2021-05-30] MEDS: Gabapentin 300 MG CAP PO SCH ×2 (18:21→22:00)
[2021-05-30] MEDS: hydrALAZINE 25 MG TAB PO SCH ×2 (18:21→21:59)
[2021-05-30] MEDS: Pyridostigmine Bromide IR 60 MG TAB PO SCH ×2 (18:21→21:59)
[2021-05-30 21:56] LABS: Troponin I 0.012 ng/mL (< 0.028)
[2021-05-30] MEDS: Doxazosin Mesylate 4 MG TAB PO SCH (21:58)
[2021-05-30] MEDS: Potassium Chloride 10 MEQ TAB PO SCH (21:59)
[2021-05-30] MEDS: HumaLOG 300 UNITS/3 ML VIAL SC PRN (22:01)
[2021-05-31 04:47] LABS: Anion Gap 12 mmol/L (10-20); BUN (Urea Nitrogen) 34 mg/dL (8.4-25.7); Calc. Creatinine Clearance 37 mL/min (70-130); Calcium 8.3 mg/dL (7.8-10.44); Carbon Dioxide 21 mmol/L (23-31); Chloride 101 mmol/L (98-107); Glucose 290 mg/dL (83-110); Potassium 4.2 mmol/L (3.5-5.1); Sodium 130 mmol/L (136-145)
[2021-05-31 05:16] LABS: Band 14 % (5-11); Hemoglobin 9.6 g/dL (14.0-18.0); Lymphocytes 9 % (21-51); MDiff Complete? YES; Mean Corpuscular HGB CONC 32.7 g/dL (32.0-36.0); Mean Corpuscular Hemoglobin 31.4 pg (27.0-31.0); Mean Platelet Volume 9.5 fL (7.4-10.4); Monocytes 3 % (0-10); Neutrophil 74 % (42-75); Platelet Count 119 thou/uL (130-400); Platelet Morphology Comment Appears Decreased; RBC Distribution Width 14.5 % (11.5-14.5); RBC Morphology Normal; Red Blood Cell (RBC) Count 3.06 mill/uL (4.70-6.10); White Blood Cell (WBC) Count 9.4 thou/uL (4.8-10.8)
[2021-05-31] MEDS: HumaLOG 300 UNITS/3 ML VIAL SC PRN ×4 (05:17→21:29)
[2021-05-31] MEDS: Acetaminophen 325 MG TAB PO PRN (05:17)
[2021-05-31] MEDS ORDERED: predniSONE 20 MG TAB PO SCH (08:00)
[2021-05-31] MEDS ORDERED: Lantus 1000 UNITS/10 ML VIAL SC SCH ×4 (09:00→21:00)
[2021-05-31] MEDS ORDERED: Losartan 25 MG TAB PO SCH (09:00)
[2021-05-31] MEDS: Gabapentin 300 MG CAP PO SCH ×3 (09:29→21:30)
[2021-05-31] MEDS: Clopidogrel Bisulfate 75 MG TAB PO SCH (09:30)
[2021-05-31] MEDS: Aspirin 81 mg Enteric Coated Tablet PO SCH (09:30)
[2021-05-31] MEDS: Allopurinol 300 MG TAB PO SCH (09:30)
[2021-05-31] MEDS: Atorvastatin Calcium 40 MG TAB PO SCH (09:30)
[2021-05-31] MEDS: Ezetimibe 10 MG TAB PO SCH (09:30)
[2021-05-31] MEDS: hydrALAZINE 25 MG TAB PO SCH ×3 (09:30→21:30)
[2021-05-31] MEDS: Potassium Chloride 10 MEQ TAB PO SCH ×2 (09:30→21:29)
[2021-05-31] MEDS: Bumetanide 1 MG TAB PO SCH ×2 (09:30→14:33)
[2021-05-31] MEDS: Pyridostigmine Bromide IR 60 MG TAB PO SCH ×3 (09:31→21:30)
[2021-05-31] MEDS ORDERED: Furosemide 40 MG/4 ML VIAL SLOW IVP SCH (13:15)
[2021-05-31] MEDS ORDERED: Enoxaparin Sodium 40 MG/0.4 ML SYRINGE SC SCH (18:00)
[2021-05-31] MEDS: Doxazosin Mesylate 4 MG TAB PO SCH (21:30)
[2021-06-01] MEDS ORDERED: Lorazepam 2 MG/ML VIAL ONE (04:16)
[2021-06-01] MEDS ORDERED: Morphine 4 MG/ML VIAL ONE (04:25)
[2021-06-01] MEDS ORDERED: levETIRAcetam in NS 500 MG in Premix Bag 1 BAG IVPB SCH (04:30)
[2021-06-01 04:43] LABS: #Lymphocytes 1.3 thou/uL (1.20-3.40); #Monocytes 0.5 thou/uL (0.11-0.59); #Neutrophils 11.9 thou/uL (1.40-6.50); %Basophils 0.2 % (0.0-1.0); %Eosinophils 0.1 % (0.0-10.0); %Lymphocytes 9.4 % (21.0-51.0); %Monocytes 3.9 % (0.0-10.0); %Neutrophils 86.5 % (42.0-75.0); Hemoglobin 9.7 g/dL (14.0-18.0); Mean Corpuscular HGB CONC 33.3 g/dL (32.0-36.0); Mean Corpuscular Hemoglobin 31.7 pg (27.0-31.0); Mean Corpuscular Volume 95.1 fL (78.0-98.0); Mean Platelet Volume 9.8 fL (7.4-10.4); Platelet Count 138 thou/uL (130-400); RBC Distribution Width 14.6 % (11.5-14.5); Red Blood Cell (RBC) Count 3.07 mill/uL (4.70-6.10); White Blood Cell (WBC) Count 13.8 thou/uL (4.8-10.8)
[2021-06-01] MEDS ORDERED: Heparin 10,000 UNITS/ 10 ML VIAL SLOW IVP SCH (05:00)
[2021-06-01 05:13] LABS: Hemoglobin 9.5 g/dL (14.0-18.0); Platelet Count 137 thou/uL (130-400)
[2021-06-01] MEDS: Heparin 25,000 units/D5W 500 ML IVPB SCH ×2 (05:32→21:57)
[2021-06-01] MEDS: HumaLOG 300 UNITS/3 ML VIAL SC PRN ×3 (05:59→20:41)
[2021-06-01 06:09] LABS: Vitamin D, 25 Hydroxy 7.3 ng/ml (> 30.0)
[2021-06-01 06:10] LABS: ALT (SGPT) 15 U/L (8-55); AST (SGOT) 10 U/L (5-34); Albumin 3.3 g/dL (3.4-4.8); Alkaline Phosphatase 140 U/L (40-110); Anion Gap 16 mmol/L (10-20); BUN (Urea Nitrogen) 46 mg/dL (8.4-25.7); Bilirubin, Total 0.4 mg/dL (0.2-1.2); Calc. Creatinine Clearance 31 mL/min (70-130); Calcium 8.1 mg/dL (7.8-10.44); Carbon Dioxide 17 mmol/L (23-31); Chloride 101 mmol/L (98-107); Globulin 3.5 g/dL (2.4-3.5); Glucose 384 mg/dL (83-110); Iron 52 ug/dL (65-175); Iron Binding Capacity, Total 214 mcg/dL (261-462); Phosphorus 3.7 mg/dL (2.3-4.7); Potassium 4.1 mmol/L (3.5-5.1); Protein, Total 6.8 g/dL (5.8-8.1); Sodium 130 mmol/L (136-145)
[2021-06-01 06:30] LABS: Ferritin 454.24 ng/mL (22-322)
[2021-06-01] MEDS ORDERED: Morphine 4 MG/ML VIAL SLOW IVP SCH (06:45)
[2021-06-01] MEDS ORDERED: Dextrose 50% Abboject 50 ML SYRINGE SLOW IVP PRN (07:41)
[2021-06-01] MEDS ORDERED: Dextrose 5% in Water 1,000 ML IV PRN (07:41)
[2021-06-01] MEDS ORDERED: Lorazepam 2 MG/ML VIAL SLOW IVP PRN (07:44)
[2021-06-01 08:08] LABS: Phosphorus 3.9 mg/dL (2.3-4.7)
[2021-06-01] MEDS ORDERED: Enoxaparin Sodium 40 MG/0.4 ML SYRINGE SC SCH ×3 (09:00→21:00)
[2021-06-01 12:13] LABS: ANA Symphony (Qualitative) Negative (Negative); ANA Symphony (Quantitative) 0.4 Ratio (< 0.7 Negative); dsDNA IgG Antibody 1.3 IU/mL (<10 Negative)
[2021-06-01] MEDS: hydrALAZINE 25 MG TAB PO SCH ×3 (13:24→20:37)
[2021-06-01] MEDS: Gabapentin 300 MG CAP PO SCH ×3 (13:24→20:36)
[2021-06-01] MEDS: Pyridostigmine Bromide IR 60 MG TAB PO SCH ×3 (13:25→20:38)
[2021-06-01] MEDS: Potassium Chloride 10 MEQ TAB PO SCH ×2 (13:26→20:36)
[2021-06-01] MEDS: Ferrous Sulfate 325 MG TAB PO SCH (13:26)
[2021-06-01] MEDS: Aspirin 81 mg Enteric Coated Tablet PO SCH (13:26)
[2021-06-01] MEDS: Bumetanide 1 MG TAB PO SCH ×2 (13:26→14:06)
[2021-06-01] MEDS: Atorvastatin Calcium 40 MG TAB PO SCH (13:27)
[2021-06-01] MEDS: Ezetimibe 10 MG TAB PO SCH (13:27)
[2021-06-01] MEDS: Allopurinol 300 MG TAB PO SCH (13:27)
[2021-06-01] MEDS: Clopidogrel Bisulfate 75 MG TAB PO SCH (13:27)
[2021-06-01] MEDS: Lantus 1000 UNITS/10 ML VIAL SC SCH ×2 (13:28→20:38)
[2021-06-01 13:50] LABS: PTT 118.9 sec (22.9-36.1)
[2021-06-01] MEDS: Acetaminophen 325 MG TAB PO PRN (14:57)
[2021-06-01] MEDS: Doxazosin Mesylate 4 MG TAB PO SCH (20:38)
[2021-06-01] MEDS ORDERED: Pantoprazole 40 MG VIAL IVP SCH (21:00)
[2021-06-01] MEDS ORDERED: Pantoprazole 40 MG GRANULES PACKET PO SCH (21:00)
[2021-06-01 23:07] LABS: PTT Greater than 250.0 sec (22.9-36.1)
[2021-06-02] MEDS ORDERED: Nitroglycerin 0.4 MG TAB (25 Tab Bottle) ONE (00:43)
[2021-06-02] MEDS ORDERED: Morphine 4 MG/ML VIAL ONE (00:49)
[2021-06-02] MEDS ORDERED: Lidocaine 2% Viscous Solution 10 ML, Aluminum & Magnesium Hydroxide 30 ML SSW SCH (01:00)
[2021-06-02] MEDS ORDERED: levETIRAcetam in NS 500 MG in Premix Bag 1 BAG IVPB SCH (01:15)
[2021-06-02 01:18] LABS: #Eosinphils 0.1 thou/uL (0.0-0.7); #Lymphocytes 1.8 thou/uL (1.20-3.40); #Monocytes 0.6 thou/uL (0.11-0.59); #Neutrophils 7.4 thou/uL (1.40-6.50); %Basophils 0.3 % (0.0-1.0); %Eosinophils 0.9 % (0.0-10.0); %Lymphocytes 18.4 % (21.0-51.0); %Neutrophils 74.4 % (42.0-75.0); Hemoglobin 9.5 g/dL (14.0-18.0); Mean Corpuscular HGB CONC 34.1 g/dL (32.0-36.0); Mean Corpuscular Hemoglobin 32.6 pg (27.0-31.0); Mean Corpuscular Volume 95.6 fL (78.0-98.0); Mean Platelet Volume 9.4 fL (7.4-10.4); Platelet Count 122 thou/uL (130-400); RBC Distribution Width 15.1 % (11.5-14.5); Red Blood Cell (RBC) Count 2.91 mill/uL (4.70-6.10)
[2021-06-02 01:35] LABS: Troponin I 0.028 ng/mL (< 0.028)
[2021-06-02 01:53] LABS: AST (SGOT) 11 U/L (5-34); Bilirubin, Total 0.3 mg/dL (0.2-1.2); Calc. Creatinine Clearance 29 mL/min (70-130); Calcium 7.6 mg/dL (7.8-10.44); Carbon Dioxide 22 mmol/L (23-31); Chloride 103 mmol/L (98-107); Phosphorus 3.6 mg/dL (2.3-4.7); Potassium 3.5 mmol/L (3.5-5.1); Protein, Total 6.1 g/dL (5.8-8.1); Sodium 134 mmol/L (136-145)
[2021-06-02 02:10] LABS: ALT (SGPT) 12 U/L (8-55); Alkaline Phosphatase 122 U/L (40-110); BUN (Urea Nitrogen) 50 mg/dL (8.4-25.7); Glucose 238 mg/dL (83-110); Magnesium 1.9 mg/dL (1.6-2.6)
[2021-06-02 02:12] LABS: Anion Gap 13 mmol/L (10-20)
[2021-06-02] MEDS: HumaLOG 300 UNITS/3 ML VIAL SC PRN ×2 (05:59→17:05)
[2021-06-02 08:08] LABS: #Eosinphils 0.1 thou/uL (0.0-0.7); #Lymphocytes 1.8 thou/uL (1.20-3.40); #Monocytes 0.4 thou/uL (0.11-0.59); #Neutrophils 6.4 thou/uL (1.40-6.50); %Basophils 0.3 % (0.0-1.0); %Eosinophils 1.7 % (0.0-10.0); %Lymphocytes 20.5 % (21.0-51.0); %Monocytes 4.9 % (0.0-10.0); %Neutrophils 72.6 % (42.0-75.0); Hemoglobin 9.1 g/dL (14.0-18.0); Mean Corpuscular HGB CONC 32.5 g/dL (32.0-36.0); Mean Corpuscular Hemoglobin 31.3 pg (27.0-31.0); Mean Corpuscular Volume 96.4 fL (78.0-98.0); Mean Platelet Volume 9.3 fL (7.4-10.4); Platelet Count 120 thou/uL (130-400); RBC Distribution Width 15.1 % (11.5-14.5); White Blood Cell (WBC) Count 8.8 thou/uL (4.8-10.8)
[2021-06-02 08:26] LABS: ALT (SGPT) 10 U/L (8-55); AST (SGOT) 9 U/L (5-34); Alkaline Phosphatase 114 U/L (40-110); Anion Gap 13 mmol/L (10-20); BUN (Urea Nitrogen) 50 mg/dL (8.4-25.7); Bilirubin, Total 0.4 mg/dL (0.2-1.2); Calc. Creatinine Clearance 28 mL/min (70-130); Calcium 7.7 mg/dL (7.8-10.44); Carbon Dioxide 22 mmol/L (23-31); Chloride 104 mmol/L (98-107); Globulin 3.1 g/dL (2.4-3.5); Glucose 164 mg/dL (83-110); Potassium 3.5 mmol/L (3.5-5.1); Protein, Total 6.1 g/dL (5.8-8.1); Sodium 135 mmol/L (136-145)
[2021-06-02] MEDS ORDERED: Metolazone 2.5 MG TAB PO SCH (09:00)
[2021-06-02] MEDS ORDERED: Lansoprazole 3 MG/ML ORAL SUSPENSION PO SCH (09:00)
[2021-06-02] MEDS ORDERED: levETIRAcetam 500 MG TAB PO SCH (09:00)
[2021-06-02] MEDS: Bumetanide 1 MG TAB PO SCH ×2 (09:02→15:21)
[2021-06-02] MEDS: hydrALAZINE 25 MG TAB PO SCH ×3 (09:02→20:57)
[2021-06-02] MEDS: Pyridostigmine Bromide IR 60 MG TAB PO SCH ×3 (09:02→20:56)
[2021-06-02] MEDS: Ferrous Sulfate 325 MG TAB PO SCH (09:03)
[2021-06-02] MEDS: Potassium Chloride 10 MEQ TAB PO SCH ×2 (09:04→20:56)
[2021-06-02] MEDS: Allopurinol 300 MG TAB PO SCH (09:04)
[2021-06-02] MEDS: Folic Acid 1 MG TAB PO SCH (09:04)
[2021-06-02] MEDS: Atorvastatin Calcium 40 MG TAB PO SCH (09:04)
[2021-06-02] MEDS: Aspirin 81 mg Enteric Coated Tablet PO SCH (09:04)
[2021-06-02] MEDS: Clopidogrel Bisulfate 75 MG TAB PO SCH (09:04)
[2021-06-02] MEDS: Ezetimibe 10 MG TAB PO SCH (09:05)
[2021-06-02] MEDS: Lantus 1000 UNITS/10 ML VIAL SC SCH ×2 (09:06→20:58)
[2021-06-02] MEDS: Gabapentin 300 MG CAP PO SCH ×3 (09:23→20:54)
[2021-06-02] MEDS: Enoxaparin Sodium 30 MG/0.3 ML SYRINGE SC SCH (11:44)
[2021-06-02] MEDS ORDERED: Sucralfate 1 GM TAB PO SCH (20:37)
[2021-06-02] MEDS ORDERED: Lidocaine 2% Viscous Solution 20 ML, Aluminum & Magnesium Hydroxide 30 ML, Donnatal Eli... SSW SCH (20:45)
[2021-06-02] MEDS: Pantoprazole 40 MG VIAL IVP SCH (20:53)
[2021-06-02] MEDS: Doxazosin Mesylate 4 MG TAB PO SCH (20:56)
[2021-06-03 04:43] LABS: #Eosinphils 0.2 thou/uL (0.0-0.7); #Lymphocytes 2.3 thou/uL (1.20-3.40); #Monocytes 0.6 thou/uL (0.11-0.59); #Neutrophils 6.6 thou/uL (1.40-6.50); %Basophils 0.2 % (0.0-1.0); %Eosinophils 1.6 % (0.0-10.0); %Lymphocytes 23.8 % (21.0-51.0); %Monocytes 6.3 % (0.0-10.0); %Neutrophils 68.2 % (42.0-75.0); Hemoglobin 9.7 g/dL (14.0-18.0); Mean Corpuscular Hemoglobin 31.4 pg (27.0-31.0); Mean Corpuscular Volume 95.3 fL (78.0-98.0); Mean Platelet Volume 9.2 fL (7.4-10.4); Platelet Count 121 thou/uL (130-400); RBC Distribution Width 15.1 % (11.5-14.5); Red Blood Cell (RBC) Count 3.08 mill/uL (4.70-6.10); White Blood Cell (WBC) Count 9.7 thou/uL (4.8-10.8)
[2021-06-03 05:06] LABS: ALT (SGPT) 13 U/L (8-55); AST (SGOT) 12 U/L (5-34); Alkaline Phosphatase 117 U/L (40-110); Anion Gap 14 mmol/L (10-20); BUN (Urea Nitrogen) 56 mg/dL (8.4-25.7); Bilirubin, Total 0.4 mg/dL (0.2-1.2); Calc. Creatinine Clearance 25 mL/min (70-130); Calcium 7.8 mg/dL (7.8-10.44); Carbon Dioxide 22 mmol/L (23-31); Chloride 104 mmol/L (98-107); Glucose 73 mg/dL (83-110); Sodium 136 mmol/L (136-145)
[2021-06-03 05:59] LABS: Hemoglobin 9.6 g/dL (14.0-18.0); Platelet Count 126 thou/uL (130-400)
[2021-06-03] MEDS: Atorvastatin Calcium 40 MG TAB PO SCH (09:20)
[2021-06-03] MEDS: Gabapentin 300 MG CAP PO SCH ×3 (09:20→21:21)
[2021-06-03] MEDS: Ferrous Sulfate 325 MG TAB PO SCH (09:20)
[2021-06-03] MEDS: hydrALAZINE 25 MG TAB PO SCH ×3 (09:20→21:20)
[2021-06-03] MEDS: Allopurinol 300 MG TAB PO SCH (09:20)
[2021-06-03] MEDS: Folic Acid 1 MG TAB PO SCH (09:20)
[2021-06-03] MEDS: Pantoprazole 40 MG VIAL IVP SCH ×2 (09:20→21:20)
[2021-06-03] MEDS: Ezetimibe 10 MG TAB PO SCH (09:20)
[2021-06-03] MEDS: Pyridostigmine Bromide IR 60 MG TAB PO SCH ×3 (09:40→21:21)
[2021-06-03] MEDS: Aspirin 81 mg Enteric Coated Tablet PO SCH (09:43)
[2021-06-03] MEDS: Enoxaparin Sodium 30 MG/0.3 ML SYRINGE SC SCH (09:43)
[2021-06-03] MEDS: Clopidogrel Bisulfate 75 MG TAB PO SCH (09:43)
[2021-06-03] MEDS ORDERED: ePHEDrine Sulfate 50 MG/10 ML VIAL ONE (12:47)
[2021-06-03] MEDS ORDERED: ePHEDrine 50 MG/ML VIAL ONE (12:48)
[2021-06-03] MEDS ORDERED: PROPOFOL 200 MG/20 ML VIAL ONE (12:48)
[2021-06-03] MEDS ORDERED: Ondansetron HCl/PF 4 MG/2 ML Vial IVP PRN (12:51)
[2021-06-03] MEDS ORDERED: ePHEDrine Sulfate 50 MG/10 ML VIAL SLOW IVP PRN (12:51)
[2021-06-03] MEDS: Lantus 1000 UNITS/10 ML VIAL SC SCH ×2 (12:54→21:21)
[2021-06-03] MEDS ORDERED: Sodium Chloride 0.9% 500 ML IV SCH (15:45)
[2021-06-03] MEDS: Sucralfate 1 GM/10 ML UDCUP PO SCH ×2 (16:40→21:21)
[2021-06-03] MEDS: Doxazosin Mesylate 4 MG TAB PO SCH (21:21)
[2021-06-04 04:38] LABS: ALT (SGPT) 12 U/L (8-55); AST (SGOT) 15 U/L (5-34); Alkaline Phosphatase 127 U/L (40-110); Anion Gap 12 mmol/L (10-20); BUN (Urea Nitrogen) 49 mg/dL (8.4-25.7); Bilirubin, Total 0.5 mg/dL (0.2-1.2); Calc. Creatinine Clearance 31 mL/min (70-130); Calcium 8.1 mg/dL (7.8-10.44); Carbon Dioxide 21 mmol/L (23-31); Chloride 104 mmol/L (98-107); Globulin 3.1 g/dL (2.4-3.5); Glucose 94 mg/dL (83-110); Potassium 3.7 mmol/L (3.5-5.1); Protein, Total 6.1 g/dL (5.8-8.1); Sodium 133 mmol/L (136-145)
[2021-06-04 05:44] LABS: #Eosinphils 0.2 thou/uL (0.0-0.7); #Lymphocytes 1.4 thou/uL (1.20-3.40); #Monocytes 0.4 thou/uL (0.11-0.59); #Neutrophils 6.1 thou/uL (1.40-6.50); %Basophils 0.2 % (0.0-1.0); %Eosinophils 2.2 % (0.0-10.0); %Lymphocytes 17.2 % (21.0-51.0); %Monocytes 5.4 % (0.0-10.0); %Neutrophils 74.9 % (42.0-75.0); Burr Cells SLIGHT = 2-5 cells (100X) (0-1/hpf); Elliptocytes SLIGHT = 2-5 cells (100X) (0-1/hpf); Hemoglobin 9.5 g/dL (14.0-18.0); MDiff Complete? YES; Mean Corpuscular HGB CONC 33.2 g/dL (32.0-36.0); Mean Corpuscular Hemoglobin 31.7 pg (27.0-31.0); Mean Corpuscular Volume 95.7 fL (78.0-98.0); Mean Platelet Volume 9.9 fL (7.4-10.4); Platelet Count 117 thou/uL (130-400); Platelet Morphology Comment Appears Decreased; RBC Distribution Width 15.3 % (11.5-14.5); Red Blood Cell (RBC) Count 2.98 mill/uL (4.70-6.10); White Blood Cell (WBC) Count 8.1 thou/uL (4.8-10.8)
[2021-06-04] MEDS ORDERED: Nitroglycerin 0.4 MG TAB (25 Tab Bottle) ONE (07:58)
[2021-06-04] MEDS: Sucralfate 1 GM/10 ML UDCUP PO SCH ×3 (08:45→21:03)
[2021-06-04] MEDS: Aspirin 81 mg Enteric Coated Tablet PO SCH (08:45)
[2021-06-04] MEDS: Ezetimibe 10 MG TAB PO SCH (08:46)
[2021-06-04] MEDS: Atorvastatin Calcium 40 MG TAB PO SCH (08:46)
[2021-06-04] MEDS: Clopidogrel Bisulfate 75 MG TAB PO SCH (08:46)
[2021-06-04] MEDS: Pyridostigmine Bromide IR 60 MG TAB PO SCH ×3 (08:46→21:04)
[2021-06-04] MEDS: Folic Acid 1 MG TAB PO SCH (08:46)
[2021-06-04] MEDS: Gabapentin 300 MG CAP PO SCH ×3 (08:46→21:03)
[2021-06-04] MEDS: Allopurinol 300 MG TAB PO SCH (08:46)
[2021-06-04] MEDS: Lantus 1000 UNITS/10 ML VIAL SC SCH ×2 (08:49→21:17)
[2021-06-04] MEDS ORDERED: Calcium Carbonate 500 MG ChewTAB PO PRN (10:00)
[2021-06-04] MEDS: hydrALAZINE 25 MG TAB PO SCH ×3 (10:54→21:08)
[2021-06-04] MEDS: Pantoprazole 40 MG VIAL IVP SCH ×2 (12:53→21:03)
[2021-06-04] MEDS: Enoxaparin Sodium 30 MG/0.3 ML SYRINGE SC SCH (12:53)
[2021-06-04] MEDS: Acetaminophen 325 MG TAB PO PRN (14:09)
[2021-06-04] MEDS: HumaLOG 300 UNITS/3 ML VIAL SC PRN (17:07)
[2021-06-04] MEDS ORDERED: Nitroglycerin 0.4 MG TAB (25 Tab Bottle) SL SCH (19:15)
[2021-06-04] MEDS: Doxazosin Mesylate 4 MG TAB PO SCH (21:06)
[2021-06-05 05:10] LABS: Hemoglobin 9.3 g/dL (14.0-18.0); Platelet Count 113 thou/uL (130-400)
[2021-06-05 07:09] LABS: Anion Gap 12 mmol/L (10-20); BUN (Urea Nitrogen) 42 mg/dL (8.4-25.7); Calc. Creatinine Clearance 35 mL/min (70-130); Calcium 8.2 mg/dL (7.8-10.44); Carbon Dioxide 23 mmol/L (23-31); Chloride 105 mmol/L (98-107); Glucose 146 mg/dL (83-110); Potassium 3.7 mmol/L (3.5-5.1); Sodium 136 mmol/L (136-145)
[2021-06-05] MEDS: Gabapentin 300 MG CAP PO SCH ×3 (09:56→21:35)
[2021-06-05] MEDS: Aspirin 81 mg Enteric Coated Tablet PO SCH (09:57)
[2021-06-05] MEDS: Allopurinol 300 MG TAB PO SCH (09:58)
[2021-06-05] MEDS: hydrALAZINE 25 MG TAB PO SCH ×3 (09:58→21:38)
[2021-06-05] MEDS: Clopidogrel Bisulfate 75 MG TAB PO SCH (09:58)
[2021-06-05] MEDS: Ezetimibe 10 MG TAB PO SCH (09:58)
[2021-06-05] MEDS: Folic Acid 1 MG TAB PO SCH (09:58)
[2021-06-05] MEDS: Atorvastatin Calcium 40 MG TAB PO SCH (09:58)
[2021-06-05] MEDS: Sucralfate 1 GM/10 ML UDCUP PO SCH ×3 (09:59→21:40)
[2021-06-05] MEDS: Enoxaparin Sodium 30 MG/0.3 ML SYRINGE SC SCH (09:59)
[2021-06-05] MEDS: Pantoprazole 40 MG VIAL IVP SCH ×2 (09:59→21:39)
[2021-06-05] MEDS: Pyridostigmine Bromide IR 60 MG TAB PO SCH ×3 (09:59→23:50)
[2021-06-05] MEDS: Lantus 1000 UNITS/10 ML VIAL SC SCH ×2 (10:01→21:48)
[2021-06-05] MEDS: HumaLOG 300 UNITS/3 ML VIAL SC PRN (12:20)
[2021-06-05] MEDS: Acetaminophen 325 MG TAB PO PRN (18:32)
[2021-06-05] MEDS: Doxazosin Mesylate 4 MG TAB PO SCH (21:35)
[2021-06-05 21:48] LABS: SARS-CoV-2 PCR by NAA Not Detected (NotDetected)
[2021-06-05] MEDS ORDERED: Guaifenesin DM 100-10/5 ML UDCUP PO PRN (22:12)
[2021-06-06] MEDS: hydrOXYzine 10 MG/5 ML UDCUP PO PRN (00:08)
[2021-06-06 04:59] LABS: #Eosinphils 0.2 thou/uL (0.0-0.7); #Lymphocytes 1.3 thou/uL (1.20-3.40); #Monocytes 0.7 thou/uL (0.11-0.59); #Neutrophils 5.5 thou/uL (1.40-6.50); %Basophils 0.3 % (0.0-1.0); %Eosinophils 2.5 % (0.0-10.0); %Lymphocytes 16.6 % (21.0-51.0); %Neutrophils 71.7 % (42.0-75.0); Hemoglobin 8.7 g/dL (14.0-18.0); Mean Corpuscular HGB CONC 33.5 g/dL (32.0-36.0); Mean Corpuscular Hemoglobin 32.4 pg (27.0-31.0); Mean Corpuscular Volume 96.5 fL (78.0-98.0); Mean Platelet Volume 9.5 fL (7.4-10.4); Platelet Count 105 thou/uL (130-400); Red Blood Cell (RBC) Count 2.68 mill/uL (4.70-6.10); White Blood Cell (WBC) Count 7.7 thou/uL (4.8-10.8)
[2021-06-06 05:12] LABS: Anion Gap 11 mmol/L (10-20); BUN (Urea Nitrogen) 40 mg/dL (8.4-25.7); Calc. Creatinine Clearance 38 mL/min (70-130); Calcium 8.2 mg/dL (7.8-10.44); Carbon Dioxide 22 mmol/L (23-31); Chloride 105 mmol/L (98-107); Glucose 134 mg/dL (83-110); Potassium 3.5 mmol/L (3.5-5.1); Sodium 134 mmol/L (136-145)
[2021-06-06] MEDS: Allopurinol 300 MG TAB PO SCH (09:27)
[2021-06-06] MEDS: Aspirin 81 mg Enteric Coated Tablet PO SCH (09:27)
[2021-06-06] MEDS: Atorvastatin Calcium 40 MG TAB PO SCH (09:28)
[2021-06-06] MEDS: Gabapentin 300 MG CAP PO SCH ×3 (09:28→20:29)
[2021-06-06] MEDS: Clopidogrel Bisulfate 75 MG TAB PO SCH (09:29)
[2021-06-06] MEDS: Ezetimibe 10 MG TAB PO SCH (09:29)
[2021-06-06] MEDS: Folic Acid 1 MG TAB PO SCH (09:33)
[2021-06-06] MEDS: hydrALAZINE 25 MG TAB PO SCH ×3 (09:33→20:28)
[2021-06-06] MEDS: Pyridostigmine Bromide IR 60 MG TAB PO SCH ×3 (09:34→20:29)
[2021-06-06] MEDS: Lantus 1000 UNITS/10 ML VIAL SC SCH ×2 (09:35→20:50)
[2021-06-06] MEDS: Sucralfate 1 GM/10 ML UDCUP PO SCH ×3 (09:37→20:29)
[2021-06-06] MEDS: Pantoprazole 40 MG VIAL IVP SCH ×2 (09:38→20:30)
[2021-06-06] MEDS: Enoxaparin Sodium 30 MG/0.3 ML SYRINGE SC SCH (10:48)
[2021-06-06] MEDS: Doxazosin Mesylate 4 MG TAB PO SCH (20:28)
[2021-06-07] MEDS: hydrOXYzine 10 MG/5 ML UDCUP PO PRN ×2 (02:07→09:46)
[2021-06-07] MEDS: Sucralfate 1 GM/10 ML UDCUP PO SCH ×3 (08:24→20:41)
[2021-06-07] MEDS: Ezetimibe 10 MG TAB PO SCH (08:25)
[2021-06-07] MEDS: Gabapentin 300 MG CAP PO SCH ×2 (08:25→15:32)
[2021-06-07] MEDS: Atorvastatin Calcium 40 MG TAB PO SCH (08:26)
[2021-06-07] MEDS: Lantus 1000 UNITS/10 ML VIAL SC SCH ×2 (08:26→20:42)
[2021-06-07] MEDS: Enoxaparin Sodium 30 MG/0.3 ML SYRINGE SC SCH (08:26)
[2021-06-07] MEDS: Aspirin 81 mg Enteric Coated Tablet PO SCH (08:26)
[2021-06-07] MEDS: Folic Acid 1 MG TAB PO SCH (08:26)
[2021-06-07] MEDS: Pyridostigmine Bromide IR 60 MG TAB PO SCH ×3 (08:26→20:42)
[2021-06-07] MEDS: Clopidogrel Bisulfate 75 MG TAB PO SCH (08:26)
[2021-06-07] MEDS: Pantoprazole 40 MG VIAL IVP SCH ×2 (08:26→20:42)
[2021-06-07] MEDS: Allopurinol 300 MG TAB PO SCH (08:26)
[2021-06-07 08:28] LABS: #Eosinphils 0.2 thou/uL (0.0-0.7); #Lymphocytes 1.8 thou/uL (1.20-3.40); #Monocytes 0.6 thou/uL (0.11-0.59); #Neutrophils 4.3 thou/uL (1.40-6.50); %Basophils 0.6 % (0.0-1.0); %Eosinophils 3.1 % (0.0-10.0); %Monocytes 8.4 % (0.0-10.0); %Neutrophils 62.1 % (42.0-75.0); Hemoglobin 8.5 g/dL (14.0-18.0); Mean Corpuscular HGB CONC 31.8 g/dL (32.0-36.0); Mean Corpuscular Hemoglobin 30.8 pg (27.0-31.0); Mean Corpuscular Volume 96.8 fL (78.0-98.0); Mean Platelet Volume 9.4 fL (7.4-10.4); Platelet Count 118 thou/uL (130-400); RBC Distribution Width 14.9 % (11.5-14.5); Red Blood Cell (RBC) Count 2.77 mill/uL (4.70-6.10); White Blood Cell (WBC) Count 6.8 thou/uL (4.8-10.8)
[2021-06-07 08:45] LABS: Anion Gap 12 mmol/L (10-20); BUN (Urea Nitrogen) 38 mg/dL (8.4-25.7); Calc. Creatinine Clearance 41 mL/min (70-130); Calcium 8.4 mg/dL (7.8-10.44); Carbon Dioxide 22 mmol/L (23-31); Chloride 105 mmol/L (98-107); Glucose 79 mg/dL (83-110); Potassium 3.9 mmol/L (3.5-5.1); Sodium 135 mmol/L (136-145)
[2021-06-07] MEDS: hydrALAZINE 25 MG TAB PO SCH (09:05)
[2021-06-07] MEDS: Nitroglycerin 0.4 MG TAB (25 Tab Bottle) SL PRN ×2 (12:31→12:45)
[2021-06-07] MEDS: HumaLOG 300 UNITS/3 ML VIAL SC PRN (12:36)
[2021-06-07] MEDS ORDERED: hydrOXYzine 10 MG/5 ML UDCUP PO PRN (16:05)
[2021-06-07] MEDS: Doxazosin Mesylate 4 MG TAB PO SCH (20:41)
[2021-06-07] MEDS ORDERED: Gabapentin 300 MG CAP PO SCH (21:00)
[2021-06-08] MEDS ORDERED: Ergocalciferol 1.25 MG(50,000 UNITS) CAP PO SCH (09:00)
[2021-06-08] MEDS: Aspirin 81 mg Enteric Coated Tablet PO SCH (09:02)
[2021-06-08] MEDS: Ezetimibe 10 MG TAB PO SCH (09:02)
[2021-06-08] MEDS: Atorvastatin Calcium 40 MG TAB PO SCH (09:02)
[2021-06-08] MEDS: Folic Acid 1 MG TAB PO SCH (09:02)
[2021-06-08] MEDS: Clopidogrel Bisulfate 75 MG TAB PO SCH (09:02)
[2021-06-08] MEDS: Allopurinol 300 MG TAB PO SCH (09:02)
[2021-06-08] MEDS: Enoxaparin Sodium 30 MG/0.3 ML SYRINGE SC SCH (09:02)
[2021-06-08] MEDS: Pyridostigmine Bromide IR 60 MG TAB PO SCH (09:03)
[2021-06-08] MEDS: Sucralfate 1 GM/10 ML UDCUP PO SCH (09:03)
[2021-06-08] MEDS: Pantoprazole 40 MG VIAL IVP SCH (09:04)
[2021-06-08] MEDS: Lantus 1000 UNITS/10 ML VIAL SC SCH (09:04)
[2021-06-08 09:06] LABS: Anion Gap 13 mmol/L (10-20); BUN (Urea Nitrogen) 37 mg/dL (8.4-25.7); Calc. Creatinine Clearance 37 mL/min (70-130); Calcium 8.4 mg/dL (7.8-10.44); Carbon Dioxide 22 mmol/L (23-31); Chloride 106 mmol/L (98-107); Glucose 68 mg/dL (83-110); Potassium 3.9 mmol/L (3.5-5.1); Sodium 137 mmol/L (136-145)
[2021-06-08 11:34] VITALS: BMI 35.5
[2021-06-08 12:19] VITALS: BP 135/71; TEMP 97.8
== END 2021-06-08 13:15 | disposition home or self-care (01) | DRG 377 ==
LOC: ERS 09:07 → ERHOLD 13:00 → 2NO 16:31 → T4-A 06-06 11:58
PROVIDERS: ADMIT Hospitalist; ATTEND Internal Medicine
PROC: 0DB38ZX Excision of Lower Esophagus, Via Natural or Artificial Opening Endoscopic, Diagnostic (ICD-10-PCS; principal; 2021-06-03)
PROC: 0DB68ZX Excision of Stomach, Via Natural or Artificial Opening Endoscopic, Diagnostic (ICD-10-PCS; 2021-06-03)
DX: K29.71 Gastritis, unspecified, with bleeding (principal); I50.33 Acute on chronic diastolic (congestive) heart failure; I13.0 Hypertensive heart and chronic kidney disease with heart failure and stage 1 through stage 4 chronic kidney disease, or unspecified chronic kidney disease; J44.1 Chronic obstructive pulmonary disease with (acute) exacerbation; J44.0 Chronic obstructive pulmonary disease with (acute) lower respiratory infection; K22.10 Ulcer of esophagus without bleeding; N17.9 Acute kidney failure, unspecified; N18.4 Chronic kidney disease, stage 4 (severe); N25.81 Secondary hyperparathyroidism of renal origin; R44.3 Hallucinations, unspecified; E87.1 Hypo-osmolality and hyponatremia; E87.2 Acidosis; I48.20 Chronic atrial fibrillation, unspecified; Z20.822 Contact with and (suspected) exposure to COVID-19; J20.9 Acute bronchitis, unspecified; I25.10 Atherosclerotic heart disease of native coronary artery without angina pectoris; M10.9 Gout, unspecified; E78.5 Hyperlipidemia, unspecified; N40.0 Benign prostatic hyperplasia without lower urinary tract symptoms; E11.22 Type 2 diabetes mellitus with diabetic chronic kidney disease; Z96.653 Presence of artificial knee joint, bilateral; F17.210 Nicotine dependence, cigarettes, uncomplicated; K21.00 Gastro-esophageal reflux disease with esophagitis, without bleeding; G47.33 Obstructive sleep apnea (adult) (pediatric); R56.9 Unspecified convulsions; D63.1 Anemia in chronic kidney disease; I27.20 Pulmonary hypertension, unspecified; I34.0 Nonrheumatic mitral (valve) insufficiency; F41.9 Anxiety disorder, unspecified; E11.42 Type 2 diabetes mellitus with diabetic polyneuropathy; E55.9 Vitamin D deficiency, unspecified; E11.21 Type 2 diabetes mellitus with diabetic nephropathy; R07.89 Other chest pain; R13.10 Dysphagia, unspecified; E66.9 Obesity, unspecified; G70.00 Myasthenia gravis without (acute) exacerbation; D50.9 Iron deficiency anemia, unspecified; Z79.899 Other long term (current) drug therapy; Z79.02 Long term (current) use of antithrombotics/antiplatelets; Z90.49 Acquired absence of other specified parts of digestive tract; Z82.49 Family history of ischemic heart disease and other diseases of the circulatory system; Z95.5 Presence of coronary angioplasty implant and graft; Z79.4 Long term (current) use of insulin; Z79.82 Long term (current) use of aspirin; Z68.35 Body mass index [BMI] 35.0-35.9, adult; I25.2 Old myocardial infarction; Z95.810 Presence of automatic (implantable) cardiac defibrillator
CPT/HCPCS: 0240U; 36415; 36416; 70450; 71045; 71275; 74230; 76770; 78451; 80048; 80053; 81003; 81015; 82306; 82570; 82607; 82728; 82746; 83540; 83550; 83605; 83735; 83880; 83970; 84100; 84146; 84156; 84443; 84484; 85014; 85018; 85025; 85049; 85379; 85730; 86038; 86225; 87040; 87086; 88305; 88312; 88341; 88342; 93005; 93010; 93306; 94640; 95712; 95819; 95957; 96365; 96374; 96375; 96376; A9540; C9113; J1644; J1650; J1815; J1940; J1953; J1956; J2060; J2270; J2405; J2704; J2930; J3475; J3490; J7512; J7620; Q9967; U0003; U0005

== ENCOUNTER 2021-06-13 15:43 | Inpatient (IN) | payer MEDICARE ==
[2021-06-13 16:31] LABS: #Eosinphils 0.2 thou/uL (0.0-0.7); #Monocytes 0.5 thou/uL (0.11-0.59); #Neutrophils 5.2 thou/uL (1.40-6.50); %Basophils 0.1 % (0.0-1.0); %Lymphocytes 25.3 % (21.0-51.0); %Monocytes 5.7 % (0.0-10.0); %Neutrophils 65.9 % (42.0-75.0); Hemoglobin 8.5 g/dL (14.0-18.0); Mean Corpuscular HGB CONC 34.5 g/dL (32.0-36.0); Mean Corpuscular Hemoglobin 32.9 pg (27.0-31.0); Mean Corpuscular Volume 95.3 fL (78.0-98.0); Mean Platelet Volume 8.2 fL (7.4-10.4); Platelet Count 168 thou/uL (130-400); RBC Distribution Width 15.1 % (11.5-14.5); White Blood Cell (WBC) Count 7.9 thou/uL (4.8-10.8)
[2021-06-13 16:54] LABS: ALT (SGPT) 14 U/L (8-55); AST (SGOT) 15 U/L (5-34); Albumin 3.1 g/dL (3.4-4.8); Alkaline Phosphatase 207 U/L (40-110); Anion Gap 15 mmol/L (10-20); BUN (Urea Nitrogen) 35 mg/dL (8.4-25.7); Bilirubin, Total 0.6 mg/dL (0.2-1.2); Calc. Creatinine Clearance 0 mL/min (70-130); Calcium 8.3 mg/dL (7.8-10.44); Carbon Dioxide 24 mmol/L (23-31); Chloride 107 mmol/L (98-107); Globulin 3.1 g/dL (2.4-3.5); Glucose 143 mg/dL (83-110); Protein, Total 6.2 g/dL (5.8-8.1); Sodium 143 mmol/L (136-145)
[2021-06-13 17:05] LABS: Potassium 2.9 mmol/L (3.5-5.1)
[2021-06-13] MEDS ORDERED: Acetaminophen 325 MG TAB PO PRN (18:19)
[2021-06-13] MEDS ORDERED: Ondansetron PF 4 MG/2 ML Vial IVP PRN (18:19)
[2021-06-13] MEDS ORDERED: Guaifenesin DM 100-10/5 ML UDCUP PO PRN (18:19)
[2021-06-13] MEDS ORDERED: Senokot S 8.6-50 MG TAB PO PRN (18:19)
[2021-06-13] MEDS ORDERED: HYDROcodone/Acetaminophen 5/325 mg Tablet PO PRN (18:19)
[2021-06-13] MEDS ORDERED: Dextrose 5% in Water 1,000 ML IV PRN (18:27)
[2021-06-13] MEDS ORDERED: Dextrose 50% Abboject 50 ML SYRINGE SLOW IVP PRN (18:27)
[2021-06-13] MEDS ORDERED: Potassium Chloride 20 MEQ TAB PO SCH (18:30)
[2021-06-13] MEDS ORDERED: Potassium Chloride 20 MEQ TAB ONE (18:44)
[2021-06-13] MEDS ORDERED: Furosemide 20 MG/2 ML VIAL ONE (18:44)
[2021-06-13] MEDS ORDERED: Potassium Chloride 20 MEQ/100 ML PREMIX BAG ONE (18:44)
[2021-06-13] MEDS ORDERED: Nitroglycerin 2% Ointment 1 INCH/1 GM Packet ONE (18:44)
[2021-06-13] MEDS ORDERED: Aspirin Chewable 81 MG TAB ONE (18:44)
[2021-06-13] MEDS ORDERED: Nicotine 14 MG PATCH ONE (21:27)
[2021-06-13] MEDS ORDERED: cefTRIAXone\\ROCEPHIN 1 GM VIAL ONE (21:27)
[2021-06-13] MEDS ORDERED: Heparin 10,000 UNITS/ 10 ML VIAL ONE (21:27)
[2021-06-13] MEDS ORDERED: Famotidine 20 MG TAB ONE (21:27)
[2021-06-13] MEDS: cefTRIAXone\\ROCEPHIN 1 GM in Sodium Chloride 0.9% 100 ML IVPB SCH (21:41)
[2021-06-13] MEDS: Nicotine 21 MG PATCH TD SCH (21:41)
[2021-06-13] MEDS: Famotidine 20 MG TAB PO SCH (21:42)
[2021-06-13 21:54] LABS: SARS-CoV-2 NAA Rapid Test Not Detected (NotDetected)
[2021-06-13] MEDS: Atorvastatin Calcium 40 MG TAB PO SCH (22:12)
[2021-06-13] MEDS: Pyridostigmine Bromide IR 60 MG TAB PO SCH (22:12)
[2021-06-13] MEDS: Gabapentin 300 MG CAP PO SCH (22:12)
[2021-06-13] MEDS: Sucralfate 1 GM/10 ML UDCUP PO SCH (22:12)
[2021-06-13] MEDS ORDERED: HumaLOG 300 UNITS/3 ML VIAL ONE (22:16)
[2021-06-13] MEDS ORDERED: methylPREDNISolone Sod Succ 40 MG VIAL ONE (22:16)
[2021-06-13 22:40] LABS: Glucose 157 mg/dL (83-110)
[2021-06-13] MEDS: Heparin 5,000 UNITS/ML VIAL SC SCH (22:40)
[2021-06-13] MEDS: methylPREDNISolone Sod Succ 40 MG VIAL IVP SCH (22:44)
[2021-06-13] MEDS: HumaLOG 300 UNITS/3 ML VIAL SC PRN (22:47)
[2021-06-13] MEDS ORDERED: HYDROcodone/Acetaminophen 5/325 mg Tablet ONE (23:48)
[2021-06-14 03:55] VITALS: BMI 33.7
[2021-06-14 05:39] LABS: #Lymphocytes 0.6 thou/uL (1.20-3.40); #Monocytes 0.1 thou/uL (0.11-0.59); #Neutrophils 5.6 thou/uL (1.40-6.50); %Basophils 0.1 % (0.0-1.0); %Eosinophils 0.4 % (0.0-10.0); %Lymphocytes 9.1 % (21.0-51.0); %Monocytes 1.1 % (0.0-10.0); %Neutrophils 89.2 % (42.0-75.0); Hemoglobin 8.6 g/dL (14.0-18.0); Mean Corpuscular HGB CONC 33.3 g/dL (32.0-36.0); Mean Corpuscular Hemoglobin 32.1 pg (27.0-31.0); Mean Corpuscular Volume 96.2 fL (78.0-98.0); Mean Platelet Volume 8.7 fL (7.4-10.4); Platelet Count 155 thou/uL (130-400); RBC Distribution Width 14.9 % (11.5-14.5); Red Blood Cell (RBC) Count 2.67 mill/uL (4.70-6.10); White Blood Cell (WBC) Count 6.3 thou/uL (4.8-10.8)
[2021-06-14] MEDS: methylPREDNISolone Sod Succ 40 MG VIAL IVP SCH ×3 (05:47→21:03)
[2021-06-14] MEDS: HumaLOG 300 UNITS/3 ML VIAL SC PRN ×3 (05:52→18:25)
[2021-06-14 05:58] LABS: Anion Gap 13 mmol/L (10-20); BUN (Urea Nitrogen) 36 mg/dL (8.4-25.7); Calc. Creatinine Clearance 37 mL/min (70-130); Calcium 8.4 mg/dL (7.8-10.44); Carbon Dioxide 25 mmol/L (23-31); Chloride 106 mmol/L (98-107); Glucose 273 mg/dL (83-110); Potassium 3.6 mmol/L (3.5-5.1); Sodium 140 mmol/L (136-145)
[2021-06-14 08:11] LABS: Glucose 209 mg/dL (83-110)
[2021-06-14] MEDS ORDERED: Potassium Chloride 20 MEQ TAB PO SCH (09:00)
[2021-06-14] MEDS: Heparin 5,000 UNITS/ML VIAL SC SCH ×2 (09:09→20:48)
[2021-06-14] MEDS: Sucralfate 1 GM/10 ML UDCUP PO SCH ×3 (09:09→20:49)
[2021-06-14] MEDS: Aspirin 81 mg Enteric Coated Tablet PO SCH (09:10)
[2021-06-14] MEDS: Ezetimibe 10 MG TAB PO SCH (09:10)
[2021-06-14] MEDS: Folic Acid 1 MG TAB PO SCH (09:10)
[2021-06-14] MEDS: Allopurinol 300 MG TAB PO SCH (09:10)
[2021-06-14] MEDS: Clopidogrel Bisulfate 75 MG TAB PO SCH (09:10)
[2021-06-14] MEDS: Pyridostigmine Bromide IR 60 MG TAB PO SCH ×2 (09:11→20:48)
[2021-06-14] MEDS: Azithromycin 250 MG TAB PO SCH (09:11)
[2021-06-14] MEDS: Lantus 1000 UNITS/10 ML VIAL SC SCH (09:17)
[2021-06-14 12:17] LABS: Glucose 292 mg/dL (83-110)
[2021-06-14] MEDS: HumaLOG 300 UNITS/3 ML VIAL SC SCH (16:32)
[2021-06-14 17:02] LABS: Anion Gap 15 mmol/L (10-20); BUN (Urea Nitrogen) 37 mg/dL (8.4-25.7); Calc. Creatinine Clearance 36 mL/min (70-130); Calcium 8.4 mg/dL (7.8-10.44); Carbon Dioxide 21 mmol/L (23-31); Chloride 106 mmol/L (98-107); Glucose 211 mg/dL (83-110); Potassium 3.7 mmol/L (3.5-5.1); Sodium 138 mmol/L (136-145)
[2021-06-14] MEDS: cefTRIAXone\\ROCEPHIN 1 GM in Sodium Chloride 0.9% 100 ML IVPB SCH (18:25)
[2021-06-14] MEDS: Nicotine 21 MG PATCH TD SCH (18:25)
[2021-06-14] MEDS: Atorvastatin Calcium 40 MG TAB PO SCH (20:47)
[2021-06-14] MEDS: Famotidine 20 MG TAB PO SCH (20:47)
[2021-06-14] MEDS: Gabapentin 300 MG CAP PO SCH (20:48)
[2021-06-14 21:37] LABS: Glucose 236 mg/dL (83-110)
[2021-06-15] MEDS: methylPREDNISolone Sod Succ 40 MG VIAL IVP SCH (06:13)
[2021-06-15] MEDS: HumaLOG 300 UNITS/3 ML VIAL SC PRN ×2 (06:14→11:52)
[2021-06-15 06:21] LABS: #Eosinphils 0.1 thou/uL (0.0-0.7); #Monocytes 0.2 thou/uL (0.11-0.59); #Neutrophils 9.5 thou/uL (1.40-6.50); %Basophils 0.1 % (0.0-1.0); %Eosinophils 0.5 % (0.0-10.0); %Lymphocytes 9.6 % (21.0-51.0); %Monocytes 2.1 % (0.0-10.0); %Neutrophils 87.7 % (42.0-75.0); Hemoglobin 9.5 g/dL (14.0-18.0); Mean Corpuscular HGB CONC 31.7 g/dL (32.0-36.0); Mean Corpuscular Hemoglobin 31.1 pg (27.0-31.0); Mean Corpuscular Volume 98.2 fL (78.0-98.0); Mean Platelet Volume 9.1 fL (7.4-10.4); Platelet Count 193 thou/uL (130-400); RBC Distribution Width 15.3 % (11.5-14.5); Red Blood Cell (RBC) Count 3.05 mill/uL (4.70-6.10); White Blood Cell (WBC) Count 10.8 thou/uL (4.8-10.8)
[2021-06-15 06:45] LABS: Glucose 203 mg/dL (83-110)
[2021-06-15] MEDS ORDERED: Furosemide 20 MG/2 ML VIAL SLOW IVP SCH (09:00)
[2021-06-15] MEDS: Heparin 5,000 UNITS/ML VIAL SC SCH (09:20)
[2021-06-15] MEDS: Sucralfate 1 GM/10 ML UDCUP PO SCH (09:20)
[2021-06-15] MEDS: Ezetimibe 10 MG TAB PO SCH (09:20)
[2021-06-15] MEDS: Azithromycin 250 MG TAB PO SCH (09:20)
[2021-06-15] MEDS: Folic Acid 1 MG TAB PO SCH (09:20)
[2021-06-15] MEDS: Allopurinol 300 MG TAB PO SCH (09:21)
[2021-06-15] MEDS: Aspirin 81 mg Enteric Coated Tablet PO SCH (09:21)
[2021-06-15] MEDS: Lantus 1000 UNITS/10 ML VIAL SC SCH (09:21)
[2021-06-15] MEDS: Clopidogrel Bisulfate 75 MG TAB PO SCH (09:21)
[2021-06-15] MEDS: Pyridostigmine Bromide IR 60 MG TAB PO SCH (09:21)
[2021-06-15] MEDS: HumaLOG 300 UNITS/3 ML VIAL SC SCH ×2 (09:22→11:51)
[2021-06-15 11:52] VITALS: BP 161/88; TEMP 97.8
[2021-06-15 12:25] LABS: Glucose 240 mg/dL (83-110)
== END 2021-06-15 13:50 | disposition home or self-care (01) | DRG 291 ==
LOC: ERS 15:43 → ERHOLD 17:54 → NEURO 06-14 03:06
PROVIDERS: ADMIT Internal Medicine; ATTEND Internal Medicine
DX: I13.0 Hypertensive heart and chronic kidney disease with heart failure and stage 1 through stage 4 chronic kidney disease, or unspecified chronic kidney disease (principal); I50.23 Acute on chronic systolic (congestive) heart failure; J44.1 Chronic obstructive pulmonary disease with (acute) exacerbation; Z20.822 Contact with and (suspected) exposure to COVID-19; N18.30 Chronic kidney disease, stage 3 unspecified; E11.22 Type 2 diabetes mellitus with diabetic chronic kidney disease; E11.40 Type 2 diabetes mellitus with diabetic neuropathy, unspecified; K21.9 Gastro-esophageal reflux disease without esophagitis; F17.210 Nicotine dependence, cigarettes, uncomplicated; E11.65 Type 2 diabetes mellitus with hyperglycemia; T38.0X5A Adverse effect of glucocorticoids and synthetic analogues, initial encounter; E87.6 Hypokalemia; I48.0 Paroxysmal atrial fibrillation; Z87.11 Personal history of peptic ulcer disease; Z71.6 Tobacco abuse counseling; Z79.899 Other long term (current) drug therapy; Z79.02 Long term (current) use of antithrombotics/antiplatelets; Z79.4 Long term (current) use of insulin; Z79.82 Long term (current) use of aspirin; Z83.3 Family history of diabetes mellitus; Z82.49 Family history of ischemic heart disease and other diseases of the circulatory system
CPT/HCPCS: 36415; 36416; 71045; 71250; 80053; 82947; 83880; 84145; 84484; 85025; 93005; 94640; 96365; 96366; 96375; 97139; J0696; J1644; J1815; J1940; J2920; J3480; J3490; J7620; U0002

== ENCOUNTER 2021-06-19 10:06 | Emergency (ER) | payer MEDICARE ==
[2021-06-19 11:53] LABS: #Eosinphils 0.2 thou/uL (0.0-0.7); #Monocytes 0.4 thou/uL (0.11-0.59); #Neutrophils 4.8 thou/uL (1.40-6.50); %Basophils 0.1 % (0.0-1.0); %Eosinophils 2.1 % (0.0-10.0); %Lymphocytes 26.6 % (21.0-51.0); %Monocytes 5.1 % (0.0-10.0); %Neutrophils 66.1 % (42.0-75.0); Hemoglobin 9.9 g/dL (14.0-18.0); Mean Corpuscular HGB CONC 32.5 g/dL (32.0-36.0); Mean Corpuscular Hemoglobin 32.4 pg (27.0-31.0); Mean Corpuscular Volume 99.9 fL (78.0-98.0); Mean Platelet Volume 9.4 fL (7.4-10.4); Platelet Count 160 thou/uL (130-400); RBC Distribution Width 15.9 % (11.5-14.5); Red Blood Cell (RBC) Count 3.05 mill/uL (4.70-6.10); White Blood Cell (WBC) Count 7.3 thou/uL (4.8-10.8)
[2021-06-19] MEDS ORDERED: Nitroglycerin 2% Ointment 1 INCH/1 GM Packet ONE (11:59)
[2021-06-19] MEDS ORDERED: Furosemide 100 MG/10 ML VIAL ONE (11:59)
[2021-06-19] MEDS ORDERED: Aspirin Chewable 81 MG TAB ONE ×2 (11:59→12:13)
[2021-06-19 12:41] LABS: ALT (SGPT) 18 U/L (8-55); AST (SGOT) 26 U/L (5-34); Albumin 3.4 g/dL (3.4-4.8); Alkaline Phosphatase 175 U/L (40-110); Anion Gap 15 mmol/L (10-20); BUN (Urea Nitrogen) 37 mg/dL (8.4-25.7); Bilirubin, Total 0.6 mg/dL (0.2-1.2); Calc. Creatinine Clearance 0 mL/min (70-130); Calcium 8.5 mg/dL (7.8-10.44); Carbon Dioxide 23 mmol/L (23-31); Chloride 107 mmol/L (98-107); Globulin 4.1 g/dL (2.4-3.5); Glucose 162 mg/dL (83-110); Potassium 3.9 mmol/L (3.5-5.1); Protein, Total 7.5 g/dL (5.8-8.1); Sodium 141 mmol/L (136-145)
== END 2021-06-19 14:08 | disposition home or self-care (01) ==
LOC: ERS 10:06
DX: I11.0 Hypertensive heart disease with heart failure (principal); I50.9 Heart failure, unspecified; I45.89 Other specified conduction disorders; I25.10 Atherosclerotic heart disease of native coronary artery without angina pectoris; E11.9 Type 2 diabetes mellitus without complications; I25.2 Old myocardial infarction; K21.9 Gastro-esophageal reflux disease without esophagitis; E78.5 Hyperlipidemia, unspecified; J44.9 Chronic obstructive pulmonary disease, unspecified; I48.91 Unspecified atrial fibrillation; F17.210 Nicotine dependence, cigarettes, uncomplicated; Z79.4 Long term (current) use of insulin; Z79.899 Other long term (current) drug therapy
CPT/HCPCS: 71045; 80053; 83880; 84484; 85025; 93005; 94760; 96374; J1940

== ENCOUNTER 2023-11-04 15:56 | Inpatient (IN) | payer MEDICARE ==
[2023-11-04 16:30] LABS: #Basophils Less than 0.03 10x3/uL (0.0-0.2); %Basophils 0.1 % (0.0-1.0); %Eosinophils 0.2 % (0.0-10.0); %Lymphocytes 11.9 % (21.0-51.0); %Monocytes 2.9 % (0.0-10.0); %Neutrophils 84.2 % (42.0-75.0); Hematocrit 28.7 % (42.0-52.0); Hemoglobin 9.9 g/dL (14.0-18.0); Mean Corpuscular HGB CONC 34.5 g/dL (32.0-36.0); Mean Corpuscular Hemoglobin 30.4 pg (27.0-31.0); Mean Platelet Volume 11.2 fL (7.4-10.4); Platelet Count 239 10x3/uL (130-400); RBC Distribution Width 16.1 % (11.5-14.5); Red Blood Cell (RBC) Count 3.26 mill/uL (4.70-6.10)
[2023-11-04] MEDS ORDERED: Aspirin Chewable 81 MG TAB ONE (16:36)
[2023-11-04 16:44] LABS: INR-International Normal Ratio 1.1; PTT 29.1 sec (22.9-36.1)
[2023-11-04] MEDS ORDERED: Ipratropium/Albuterol 3 ML NEB ONE (16:47)
[2023-11-04 16:50] LABS: Critical Call Chemistry ERS.LH22t
[2023-11-04 16:51] LABS: ALT (SGPT) 15 U/L (8-55); AST (SGOT) 19 U/L (5-34); Albumin 2.8 g/dL (3.4-4.8); Alkaline Phosphatase 132 U/L (40-110); Anion Gap 17 mmol/L (10-20); BUN (Urea Nitrogen) 38 mg/dL (8.4-25.7); Bilirubin, Total 0.4 mg/dL (0.2-1.2); Calc. Creatinine Clearance 0 mL/min (70-130); Calcium 8.7 mg/dL (7.8-10.44); Carbon Dioxide 23 mmol/L (23-31); Chloride 100 mmol/L (98-107); Estimated GFR 24; Globulin 4.4 g/dL (2.4-3.5); Glucose 539 mg/dL (83-110); Lipase 40 U/L (8-78); Magnesium 1.6 mg/dL (1.6-2.6); Potassium 3.5 mmol/L (3.5-5.1); Protein, Total 7.2 g/dL (5.8-8.1); Sodium 136 mmol/L (136-145)
[2023-11-04 16:53] LABS: Troponin I 0.028 ng/mL (< 0.028)
[2023-11-04] MEDS ORDERED: Ondansetron ODT 4 MG TAB PO PRN (19:18)
[2023-11-04] MEDS ORDERED: Dextrose 50% Abboject 50 ML SYRINGE SLOW IVP PRN (19:18)
[2023-11-04] MEDS ORDERED: Dextrose 5% in Water 1,000 ML IV PRN (19:18)
[2023-11-04] MEDS ORDERED: Ondansetron PF 4 MG/2 ML Vial IVP PRN (19:18)
[2023-11-04] MEDS ORDERED: Acetaminophen 650 MG Suppository PR PRN (19:18)
[2023-11-04] MEDS ORDERED: Glucagon 1 MG/ML KIT IM PRN (19:18)
[2023-11-04] MEDS ORDERED: Insulin Lispro 100 UNIT/ML 10 ML VIAL SC PRN (19:18)
[2023-11-04] MEDS ORDERED: Ipratropium/Albuterol 3 ML NEB NEB PRN (19:26)
[2023-11-04 19:50] LABS: Bacteria/HPF None Seen HPF (None Seen); Bilirubin Negative (Negative); Blood, Urine Negative (Negative); Clarity Clear (Clear); Glucose, Urine (Dipstick) 500 mg/dL (Negative); Ketone, Urine Negative (Negative); Leukocyte Negative Leu/uL (Negative); Nitrite Negative (Negative); Protein, Urine (Dipstick) 30 mg/dL (Neg-Trace); RBC/HPF 0-3 HPF (0-3); Specific Gravity, Urine 1.009 (1.002-1.036); Squamous Epithelial None Seen HPF (0-3); Urobilinogen Normal mg/dL (Less than 2); WBC/HPF 0-3 HPF (0-3)
[2023-11-04] MEDS ORDERED: Morphine 4 MG/ML VIAL ONE (19:50)
[2023-11-04] MEDS ORDERED: Furosemide 40 MG (4 mL) VIAL ONE (19:50)
[2023-11-04] MEDS: Ipratropium/Albuterol 3 ML NEB NEB SCH (21:39)
[2023-11-04 21:47] LABS: Troponin I 0.023 ng/mL (< 0.028)
[2023-11-04 22:19] VITALS: BMI 28.8
[2023-11-04] MEDS: Insulin Lispro 100 UNIT/ML 10 ML VIAL SC PRN (22:27)
[2023-11-04] MEDS ORDERED: Electrolyte Replacement Protocol 1 EACH FS SCH (22:30)
[2023-11-05 00:39] VITALS: BP 140/72
[2023-11-05 01:55] LABS: #Basophils Less than 0.03 10x3/uL (0.0-0.2); %Basophils 0.1 % (0.0-1.0); %Eosinophils 0.6 % (0.0-10.0); %Lymphocytes 14.8 % (21.0-51.0); %Monocytes 4.4 % (0.0-10.0); %Neutrophils 79.2 % (42.0-75.0); Hematocrit 28.5 % (42.0-52.0); Hemoglobin 9.8 g/dL (14.0-18.0); Mean Corpuscular HGB CONC 34.4 g/dL (32.0-36.0); Mean Corpuscular Hemoglobin 30.8 pg (27.0-31.0); Mean Corpuscular Volume 89.6 fL (78.0-98.0); Mean Platelet Volume 10.3 fL (7.4-10.4); Platelet Count 206 10x3/uL (130-400); RBC Distribution Width 16.2 % (11.5-14.5); Red Blood Cell (RBC) Count 3.18 mill/uL (4.70-6.10)
[2023-11-05] MEDS: Lorazepam 2 MG/ML VIAL SLOW IVP PRN (02:01)
[2023-11-05] MEDS: levETIRAcetam 500 MG (5 mL) VIAL SLOW IVP SCH (02:01)
[2023-11-05 02:05] LABS: Lactic Acid 2.6 mmol/L (0.5-2.2)
[2023-11-05 02:16] LABS: Anion Gap 16 mmol/L (10-20); BUN (Urea Nitrogen) 37 mg/dL (8.4-25.7); Calc. Creatinine Clearance 27 mL/min (70-130); Calcium 8.7 mg/dL (7.8-10.44); Carbon Dioxide 24 mmol/L (23-31); Chloride 100 mmol/L (98-107); Estimated GFR 24; Glucose 435 mg/dL (83-110); Magnesium 1.6 mg/dL (1.6-2.6); Potassium 3.2 mmol/L (3.5-5.1); Sodium 137 mmol/L (136-145)
[2023-11-05] MEDS: Insulin Lispro 100 UNIT/ML 10 ML VIAL SC PRN (02:52)
[2023-11-05] MEDS: Insulin NPH Human Isophane 100 UNITS/ML (10 ML VIAL) SC SCH (02:52)
[2023-11-05] MEDS: Magnesium 2 GM/50 ML(in water) 2 GM in Premix 1 BAG IVPB SCH (02:52)
[2023-11-05 03:54] LABS: #Basophils 0.03 10x3/uL (0.0-0.2); %Basophils 0.2 % (0.0-1.0); %Eosinophils 0.8 % (0.0-10.0); %Lymphocytes 16.6 % (21.0-51.0); %Monocytes 5.3 % (0.0-10.0); %Neutrophils 76.1 % (42.0-75.0); Hematocrit 28.1 % (42.0-52.0); Hemoglobin 9.5 g/dL (14.0-18.0); Mean Corpuscular HGB CONC 33.8 g/dL (32.0-36.0); Mean Corpuscular Volume 88.6 fL (78.0-98.0); Mean Platelet Volume 10.9 fL (7.4-10.4); Platelet Count 223 10x3/uL (130-400); RBC Distribution Width 16.2 % (11.5-14.5); Red Blood Cell (RBC) Count 3.17 mill/uL (4.70-6.10)
[2023-11-05 04:08] LABS: Amphetamine Not Detected (NotDetected); Barbiturates Screen Not Detected (NotDetected); Benzodiazepine Screen Not Detected (NotDetected); Cocaine Metabolite Screen Not Detected (NotDetected); Methadone Not Detected (NotDetected); Methamphetamine Not Detected (NotDetected); Opiate Screen Detected (NotDetected); Oxycodone Screen Not Detected (NotDetected); Phencyclidine (PCP) Not Detected (NotDetected); THC/Cannabinoid Screen Not Detected (NotDetected); Tricyclic Screen Not Detected (NotDetected)
[2023-11-05 04:32] LABS: Anion Gap 15 mmol/L (10-20); BUN (Urea Nitrogen) 37 mg/dL (8.4-25.7); Calc. Creatinine Clearance 28 mL/min (70-130); Calcium 8.5 mg/dL (7.8-10.44); Carbon Dioxide 26 mmol/L (23-31); Chloride 100 mmol/L (98-107); Estimated GFR 24; Glucose 386 mg/dL (83-110); Sodium 138 mmol/L (136-145)
[2023-11-05] MEDS: Potassium Chloride 20 MEQ in Premix 1 BAG IVPB SCH (05:22)
[2023-11-05] MEDS ORDERED: Ipratropium/Albuterol 3 ML NEB NEB PRN (08:11)
[2023-11-05] MEDS: Ezetimibe 10 MG TAB PO SCH (09:10)
[2023-11-05] MEDS: Aspirin 81 mg Enteric Coated Tablet PO SCH (09:10)
[2023-11-05] MEDS: Insulin Glargine 30 UNITS/0.3 ML VIAL SC SCH (09:10)
[2023-11-05] MEDS: Pantoprazole 40 MG VIAL IVP SCH (09:10)
[2023-11-05] MEDS: Metolazone 2.5 MG TAB PO SCH (09:10)
[2023-11-05] MEDS: Furosemide 40 MG (4 mL) VIAL SLOW IVP SCH (09:10)
[2023-11-05] MEDS: Acetaminophen 325 MG TAB PO PRN (10:45)
[2023-11-05 12:20] VITALS: TEMP 98.3
[2023-11-05] MEDS ORDERED: Losartan 25 MG TAB PO SCH (21:00)
[2023-11-05] MEDS ORDERED: Atorvastatin Calcium 40 MG TAB PO SCH (21:00)
[2023-11-05] MEDS ORDERED: Magnesium Oxide 250 MG TAB PO SCH (21:00)
[2023-11-05] MEDS ORDERED: Doxazosin Mesylate 1 MG TAB PO SCH (21:00)
[2023-11-06] MEDS ORDERED: Ferrous Sulfate 325 MG TAB PO SCH (08:00)
[2023-11-06] MEDS ORDERED: Isosorbide Mononitrate 60 MG ER.TAB PO SCH (09:00)
== END 2023-11-05 14:10 | disposition home or self-care (01) | DRG 100 ==
LOC: ERS 15:56 → 2NO 19:07 → CCU 11-05 01:46 → OBSVTOIN 11-05 08:09
PROVIDERS: ADMIT Student in an Organized Health Care Education/Training Program; ATTEND Internal Medicine
DX: R56.9 Unspecified convulsions (principal); I50.23 Acute on chronic systolic (congestive) heart failure; I13.0 Hypertensive heart and chronic kidney disease with heart failure and stage 1 through stage 4 chronic kidney disease, or unspecified chronic kidney disease; N18.4 Chronic kidney disease, stage 4 (severe); J44.9 Chronic obstructive pulmonary disease, unspecified; Z66 Do not resuscitate; I48.91 Unspecified atrial fibrillation; K21.9 Gastro-esophageal reflux disease without esophagitis; E11.65 Type 2 diabetes mellitus with hyperglycemia; D63.1 Anemia in chronic kidney disease; D72.829 Elevated white blood cell count, unspecified; I25.10 Atherosclerotic heart disease of native coronary artery without angina pectoris; E11.22 Type 2 diabetes mellitus with diabetic chronic kidney disease; F17.210 Nicotine dependence, cigarettes, uncomplicated; Z96.653 Presence of artificial knee joint, bilateral; Z53.29 Procedure and treatment not carried out because of patient's decision for other reasons; I25.2 Old myocardial infarction; Z79.4 Long term (current) use of insulin; Z95.0 Presence of cardiac pacemaker; Z79.82 Long term (current) use of aspirin; Z79.899 Other long term (current) drug therapy; Z90.49 Acquired absence of other specified parts of digestive tract
CPT/HCPCS: 36415; 36416; 70450; 71045; 80048; 80053; 80306; 81001; 82010; 82550; 83605; 83690; 83735; 83880; 83930; 84146; 84443; 84484; 85025; 85610; 85730; 93005; 93010; 94640; 96374; 96375; C9113; G0378; J1815; J1940; J1953; J2060; J2270; J3475; J3480; J7620

== ENCOUNTER 2024-03-02 19:17 | Inpatient (IN) | payer MEDICARE ==
[2024-03-02] MEDS ORDERED: Nitroglycerin 0.4 MG TAB (25 Tab Bottle) SL PRN (20:56)
[2024-03-02] MEDS ORDERED: Dextrose 50% Abboject 50 ML SYRINGE SLOW IVP PRN (21:02)
[2024-03-02] MEDS ORDERED: Glucagon 1 MG/ML KIT IM PRN (21:02)
[2024-03-02] MEDS ORDERED: Ondansetron PF 4 MG/2 ML Vial IVP PRN (21:02)
[2024-03-02] MEDS ORDERED: Dextrose 5% in Water 1,000 ML IV PRN (21:02)
[2024-03-02] MEDS ORDERED: Albuterol 2.5 MG (3 mL) NEB NEB PRN (21:09)
[2024-03-02] MEDS: Azithromycin 500 MG in Sodium Chloride 0.9% 250 ML 250 ML IVPB SCH (22:26)
[2024-03-02] MEDS: cefTRIAXone\\ROCEPHIN 1 GM in Sodium Chloride 0.9% 100 ML IVPB SCH (22:26)
[2024-03-02] MEDS: Insulin Glargine 30 UNITS/0.3 ML VIAL SC SCH (22:27)
[2024-03-02] MEDS: Magnesium Oxide 250 MG TAB PO SCH (22:27)
[2024-03-02] MEDS: Atorvastatin Calcium 40 MG TAB PO SCH (22:27)
[2024-03-02] MEDS: Doxazosin Mesylate 1 MG TAB PO SCH (22:35)
[2024-03-02] MEDS: Ipratropium/Albuterol 3 ML NEB NEB SCH (22:57)
[2024-03-02 23:35] VITALS: BMI 28.1
[2024-03-02] MEDS: Sodium Chloride 0.9% 1,000 ML IV SCH (23:59)
[2024-03-02] MEDS: Potassium Chloride 20 MEQ TAB PO SCH (23:59)
[2024-03-03 00:45] LABS: Troponin I 0.038 ng/mL (< 0.028)
[2024-03-03 04:35] LABS: Hematocrit 30.6 % (42.0-52.0); Hemoglobin 10.5 g/dL (14.0-18.0); Mean Corpuscular HGB CONC 34.3 g/dL (32.0-36.0); Mean Corpuscular Hemoglobin 30.1 pg (27.0-31.0); Mean Corpuscular Volume 87.7 fL (78.0-98.0); Mean Platelet Volume 11.6 fL (7.4-10.4); Platelet Count 126 10x3/uL (130-400); RBC Distribution Width 14.2 % (11.5-14.5); Red Blood Cell (RBC) Count 3.49 mill/uL (4.70-6.10)
[2024-03-03 04:49] LABS: Anion Gap 18 mmol/L (10-20); BUN (Urea Nitrogen) 89 mg/dL (8.4-25.7); Calc. Creatinine Clearance 17 mL/min (70-130); Calcium 8.2 mg/dL (7.8-10.44); Carbon Dioxide 20 mmol/L (23-31); Chloride 92 mmol/L (98-107); Estimated GFR 14; Glucose 329 mg/dL (83-110); Potassium 4.2 mmol/L (3.5-5.1); Sodium 126 mmol/L (136-145)
[2024-03-03 05:29] LABS: Band 6 % (5-11); Burr Cells SLIGHT = 2-5 cells HPF (0-1); Lymphocytes 5 % (21-51); Macrocytosis SLIGHT = 6-15 cells HPF (0-5); Monocytes 4 % (0-10); Neutrophil 85 % (42-75); Platelet Adequacy Comment Platelets Normal; Poikilocytosis MODERATE=16-30 cells HPF (0-5)
[2024-03-03] MEDS: Insulin Lispro 100 UNIT/ML 10 ML VIAL SC PRN (07:05)
[2024-03-03 07:36] LABS: Legionella Urinary Ag Negative (Negative); Strep pneumo Urine Ag NEGATIVE (NEGATIVE)
[2024-03-03 08:25] LABS: Influenza A by NAA Not Detected (NotDetected); Influenza B by NAA Not Detected (NotDetected); SARS-CoV-2 NAA Rapid Test Not Detected (NotDetected)
[2024-03-03] MEDS ORDERED: Insulin Glargine 30 UNITS/0.3 ML VIAL SC PRN (09:00)
[2024-03-03] MEDS: Tamsulosin HCl 0.4 MG CAP PO SCH (09:05)
[2024-03-03] MEDS: Pantoprazole DR 40 MG TAB PO SCH (09:05)
[2024-03-03] MEDS: Ezetimibe 10 MG TAB PO SCH (09:05)
[2024-03-03] MEDS: Aspirin 81 mg Enteric Coated Tablet PO SCH (09:05)
[2024-03-03] MEDS: Potassium Chloride 20 MEQ TAB PO SCH (09:05)
[2024-03-03] MEDS: Isosorbide Mononitrate 60 MG ER.TAB PO SCH (09:05)
[2024-03-03] MEDS: Ferrous Sulfate 325 MG TAB PO SCH (09:05)
[2024-03-03] MEDS: Heparin 5,000 UNITS/ML VIAL SC SCH (09:06)
[2024-03-03 10:16] VITALS: BMI 28.1
[2024-03-03] MEDS ORDERED: guaiFENesin/Codeine 200 mg/20 mg 10 ml Cup PO PRN (10:37)
[2024-03-03] MEDS: guaiFENesin/Codeine 200 mg/20 mg 10 ml Cup PO SCH (13:02)
[2024-03-03] MEDS: Insulin Glargine 30 UNITS/0.3 ML VIAL SC SCH (21:50)
[2024-03-03] MEDS: Apixaban 5 MG TAB PO SCH (21:50)
[2024-03-04] MEDS: Morphine 2 MG/ML VIAL SLOW IVP SCH (01:13)
[2024-03-04 05:04] LABS: Anion Gap 16 mmol/L (10-20); BUN (Urea Nitrogen) 83 mg/dL (8.4-25.7); Calc. Creatinine Clearance 19 mL/min (70-130); Calcium 8.1 mg/dL (7.8-10.44); Carbon Dioxide 19 mmol/L (23-31); Chloride 97 mmol/L (98-107); Estimated GFR 17; Glucose 319 mg/dL (83-110); Potassium 3.7 mmol/L (3.5-5.1); Sodium 128 mmol/L (136-145)
[2024-03-04 05:27] LABS: #Basophils Less than 0.03 10x3/uL (0.0-0.2); %Basophils 0.1 % (0.0-1.0); %Eosinophils 1.1 % (0.0-10.0); %Lymphocytes 7.7 % (21.0-51.0); %Monocytes 5.3 % (0.0-10.0); Hematocrit 26.5 % (42.0-52.0); Hemoglobin 9.1 g/dL (14.0-18.0); Mean Corpuscular HGB CONC 34.3 g/dL (32.0-36.0); Mean Corpuscular Hemoglobin 29.7 pg (27.0-31.0); Mean Corpuscular Volume 86.6 fL (78.0-98.0); Mean Platelet Volume 11.9 fL (7.4-10.4); Platelet Count 114 10x3/uL (130-400); RBC Distribution Width 14.4 % (11.5-14.5); Red Blood Cell (RBC) Count 3.06 mill/uL (4.70-6.10)
[2024-03-04] MEDS ORDERED: FLU (Fluad Triv) TS24-25 (65UP)/MF59C/PF 45 MCG/0.5 ML Syringe IM ONE (09:00)
[2024-03-04] MEDS: Insulin Glargine 30 UNITS/0.3 ML VIAL SC SCH (10:03)
[2024-03-04] MEDS: Acetaminophen 325 MG TAB PO PRN (10:04)
[2024-03-04] MEDS ORDERED: Morphine 2 MG/ML VIAL SLOW IVP PRN (10:16)
[2024-03-04] MEDS: Megestrol Acetate 800 MG/20 ML UDCUP PO SCH (10:26)
[2024-03-04] MEDS ORDERED: Morphine 2 MG/ML VIAL SLOW IVP SCH (12:00)
[2024-03-04] MEDS: Ipratropium/Albuterol 3 ML NEB NEB SCH (14:07)
[2024-03-04] MEDS: Insulin Lispro 100 UNIT/ML 10 ML VIAL SC PRN (22:09)
[2024-03-05 04:48] LABS: #Basophils 0.03 10x3/uL (0.0-0.2); %Basophils 0.3 % (0.0-1.0); %Eosinophils 2.8 % (0.0-10.0); %Lymphocytes 12.1 % (21.0-51.0); %Monocytes 7.3 % (0.0-10.0); %Neutrophils 76.5 % (42.0-75.0); Hematocrit 27.9 % (42.0-52.0); Hemoglobin 9.6 g/dL (14.0-18.0); Mean Corpuscular HGB CONC 34.4 g/dL (32.0-36.0); Mean Corpuscular Hemoglobin 29.9 pg (27.0-31.0); Mean Corpuscular Volume 86.9 fL (78.0-98.0); Mean Platelet Volume 11.9 fL (7.4-10.4); Platelet Count 128 10x3/uL (130-400); RBC Distribution Width 14.5 % (11.5-14.5); Red Blood Cell (RBC) Count 3.21 mill/uL (4.70-6.10)
[2024-03-05 05:12] LABS: Anion Gap 14 mmol/L (10-20); BUN (Urea Nitrogen) 68 mg/dL (8.4-25.7); Calc. Creatinine Clearance 23 mL/min (70-130); Calcium 8.7 mg/dL (7.8-10.44); Carbon Dioxide 22 mmol/L (23-31); Chloride 100 mmol/L (98-107); Estimated GFR 21; Glucose 173 mg/dL (83-110); Potassium 3.2 mmol/L (3.5-5.1); Sodium 133 mmol/L (136-145)
[2024-03-05] MEDS: Potassium Chloride 20 MEQ TAB PO SCH (08:54)
[2024-03-05] MEDS: Megestrol Acetate 800 MG/20 ML UDCUP PO SCH (08:56)
[2024-03-05] MEDS ORDERED: Cefepime 1 GM in Sodium Chloride 0.9% 100 ML IVPB SCH (10:00)
[2024-03-05] MEDS: Cefepime 1 GM in Sodium Chloride 0.9% 100 ML IVPB SCH (10:59)
[2024-03-05] MEDS: Benzonatate 100 MG CAP PO SCH (15:46)
[2024-03-05] MEDS: Insulin Glargine 30 UNITS/0.3 ML VIAL SC SCH (21:39)
[2024-03-06 04:21] LABS: #Basophils Less than 0.03 10x3/uL (0.0-0.2); %Basophils 0.2 % (0.0-1.0); %Eosinophils 2.8 % (0.0-10.0); %Lymphocytes 16.7 % (21.0-51.0); %Monocytes 7.3 % (0.0-10.0); %Neutrophils 71.9 % (42.0-75.0); Hematocrit 26.7 % (42.0-52.0); Hemoglobin 9.2 g/dL (14.0-18.0); Mean Corpuscular HGB CONC 34.5 g/dL (32.0-36.0); Mean Corpuscular Hemoglobin 30.3 pg (27.0-31.0); Mean Corpuscular Volume 87.8 fL (78.0-98.0); Mean Platelet Volume 11.8 fL (7.4-10.4); Platelet Count 137 10x3/uL (130-400); RBC Distribution Width 14.6 % (11.5-14.5); Red Blood Cell (RBC) Count 3.04 mill/uL (4.70-6.10)
[2024-03-06 04:40] LABS: Anion Gap 13 mmol/L (10-20); BUN (Urea Nitrogen) 60 mg/dL (8.4-25.7); Calc. Creatinine Clearance 26 mL/min (70-130); Calcium 8.4 mg/dL (7.8-10.44); Carbon Dioxide 20 mmol/L (23-31); Chloride 101 mmol/L (98-107); Estimated GFR 24; Glucose 303 mg/dL (83-110); Potassium 3.2 mmol/L (3.5-5.1); Sodium 131 mmol/L (136-145)
[2024-03-06 04:42] LABS: Hemoglobin A1c 12.4 % (4.0-6.0)
[2024-03-06] MEDS: Potassium Chloride 20 MEQ TAB PO SCH (09:01)
[2024-03-06] MEDS: Fluticasone Propionate Nasal Spray 16 gm Bottle NASAL SCH (11:25)
[2024-03-06] MEDS: Insulin Glargine 30 UNITS/0.3 ML VIAL SC SCH (11:26)
[2024-03-07 05:04] LABS: #Basophils Less than 0.03 10x3/uL (0.0-0.2); %Basophils 0.1 % (0.0-1.0); %Eosinophils 2.4 % (0.0-10.0); %Lymphocytes 17.2 % (21.0-51.0); %Monocytes 6.1 % (0.0-10.0); %Neutrophils 73.2 % (42.0-75.0); Hematocrit 27.2 % (42.0-52.0); Hemoglobin 9.4 g/dL (14.0-18.0); Mean Corpuscular HGB CONC 34.6 g/dL (32.0-36.0); Mean Corpuscular Hemoglobin 30.3 pg (27.0-31.0); Mean Corpuscular Volume 87.7 fL (78.0-98.0); Mean Platelet Volume 11.4 fL (7.4-10.4); Platelet Count 144 10x3/uL (130-400); RBC Distribution Width 14.8 % (11.5-14.5)
[2024-03-07 05:23] LABS: Anion Gap 13 mmol/L (10-20); BUN (Urea Nitrogen) 51 mg/dL (8.4-25.7); Calc. Creatinine Clearance 26 mL/min (70-130); Calcium 8.5 mg/dL (7.8-10.44); Carbon Dioxide 18 mmol/L (23-31); Chloride 103 mmol/L (98-107); Estimated GFR 24; Glucose 220 mg/dL (83-110); Potassium 3.5 mmol/L (3.5-5.1); Sodium 130 mmol/L (136-145)
[2024-03-07] MEDS: Insulin Glargine 30 UNITS/0.3 ML VIAL SC SCH (09:48)
[2024-03-07] MEDS: Fluticasone Propionate Nasal Spray 16 gm Bottle NASAL SCH (09:49)
[2024-03-07] MEDS: LevoFLOXacin 750 MG TAB PO SCH (11:44)
[2024-03-07 14:43] VITALS: BP 145/66; TEMP 97.3
== END 2024-03-07 12:55 | disposition home or self-care (01) | DRG 871 ==
LOC: 2SE 19:17
PROVIDERS: ADMIT Internal Medicine; ATTEND Family Medicine
DX: A41.50 Gram-negative sepsis, unspecified (principal); J15.69 Pneumonia due to other Gram-negative bacteria; J96.01 Acute respiratory failure with hypoxia; N17.9 Acute kidney failure, unspecified; N18.4 Chronic kidney disease, stage 4 (severe); E87.1 Hypo-osmolality and hyponatremia; I5A Non-ischemic myocardial injury (non-traumatic); I50.42 Chronic combined systolic (congestive) and diastolic (congestive) heart failure; I13.0 Hypertensive heart and chronic kidney disease with heart failure and stage 1 through stage 4 chronic kidney disease, or unspecified chronic kidney disease; E87.20 Acidosis, unspecified; E44.0 Moderate protein-calorie malnutrition; I42.0 Dilated cardiomyopathy; I47.20 Ventricular tachycardia, unspecified; Z66 Do not resuscitate; I48.91 Unspecified atrial fibrillation; E11.22 Type 2 diabetes mellitus with diabetic chronic kidney disease; I25.10 Atherosclerotic heart disease of native coronary artery without angina pectoris; K21.9 Gastro-esophageal reflux disease without esophagitis; J44.9 Chronic obstructive pulmonary disease, unspecified; N40.0 Benign prostatic hyperplasia without lower urinary tract symptoms; E78.5 Hyperlipidemia, unspecified; Z95.0 Presence of cardiac pacemaker; Z90.49 Acquired absence of other specified parts of digestive tract; Z79.82 Long term (current) use of aspirin; Z79.899 Other long term (current) drug therapy; E87.6 Hypokalemia
CPT/HCPCS: 36415; 36416; 71045; 80048; 80053; 81001; 83036; 83605; 83735; 83880; 84484; 85025; 85610; 85730; 87040; 87077; 87149; 87186; 87324; 87449; 87899; 93005; 93010; 93306; 94640; 94760; 96374; 96375; J0282; J0283; J0456; J0692; J0696; J1644; J1815; J2272; J3370; J7030; J7050; J7620